=== PATIENT | male | born 1980 | race Caucasian/White ===

== ENCOUNTER 2016-05-23 03:02 | Emergency (ER) | payer OTHER ==
[~2016-05-23 03:02] MED LIST: /FENT50PA TD; /FENT75PA; /FENT75PA TD; /ONDA4TA OR; /PANT40TA PO; ATEN25TA PO; ATEN50TA2 PO; BUPR10TASR PO; CARA1TAB2 PO; CATA0.2T PO; CIPR500T89 PO; COLA50CA3 PO; DOLO10TA PO; FLAG500T PO; FOLI1TAB2 PO; FOLI1TAB86 PO; IBUP200C PO; LACT10SO29 PO; LEVA500T PO; LYRI100C10 PO; MAGN400T PO; MAGNSO PO; MORP1CAP PO; MORP30TA2 PO; MORPHINE ER PO; MORPHINE IR PO; MS C200T PO; MS C30TA PO; NADO20TA2 PO; NEUR600T PO; NICO21DI TD; NICO21DI4; NICO21DI4 TD; NICO21PAT EXT; NICO21PAT TD; NICODIS TD; NICOTINE PATCH EXT; NORV5TAB OR; No Historical Meds; OXAZ10CA PO; OXYC15TA76 PO; OXYC1TAB23 PO; OXYCO5TA PO; PANT40TA2 PO; PERCOCET PO; PRIL20CA PO; PROP10TAB OR; REGL10TA6 PO; SENO8.6T9 PO; TRAM50TA2 OR; TRAM50TA2 PO; TRAZ100T2 PO; TRAZ100T4 PO; Thiamine Hcl PO; VITA100L PO; VITA100T92 PO; VITMTA PO; WELL150T PO
[2016-05-23] MEDS ORDERED: GI COCKTAIL 50ML BTL(HYOSCYAMINE/MAALOX/LIDOCAINE VISCOUS)(1:3:1) As Ordered ONE (06:37)
--- NOTE | 2016-05-23 07:31 | EDDOCDS ---
Physician Documentation [facility] Name: Phong Stafford Age: 36 yrs Sex: Male : 1980 Arrival Date: 05/23/2016 Time: 03:02 Bed 9 Private MD: Disposition: 05/23/16 07:02 Discharged to Home/Self Care. Impression: Oral mucositis (ulcerative). - Condition is Stable. - Discharge Instructions: Oral Ulcers. - Prescriptions for Maalox Maximum Strength - take 10 milliliter by ORAL route 2 times per day for 14 days; 1 bottle. diphenhydramine HCl 12.5 mg/5 mL Oral Liquid - take 5 milliliter by ORAL route every 4-6 hours As needed; 120 milliliter. - Medication Reconciliation, Local Pharmacy Hours form. - [facility] ; When: Call to arrange an appointment; Reason: Recheck today's complaints, Continuance of care, To establish care. Follow up: Justen Coombs; When: Call to arrange an appointment; Reason: Further diagnostic work-up, Recheck today's complaints, To establish care. - Problem is an ongoing problem. - Symptoms are unchanged. Historical: - Allergies: No known drug Allergies; - Home Meds: 1. none - PMHx: Anxiety; Cirrhosis; Depression; Gall Bladder Disease; Hepatitis; Hypertension; Pancreatitis; - PSHx: Knee Arthroplasty, Left; Cholecystectomy; abdominal surgery; - Social history: Smoking status: Patient uses tobacco products, heavy tobacco smoker. No barriers to communication noted, The patient speaks fluent Telugu. - Family history: No immediate family members are acutely ill. - : The pt / caregiver states he / she is not on anticoagulants. Home medication list is obtained from the patient. - Exposure Risk Screening:: None identified. Vital Signs: 05/23 03:16 BP 135 / 84; Pulse 82; Resp 18; Temp 97.1; Pulse Ox 94% on R/A; Weight 90.72 kg / 200 nn1 lbs; Height 5 ft. 11 in. (180.34 cm); Pain 10/10; 06:58 BP 142 / 82; Pulse 80; Resp 18; Temp 97.5; Pulse Ox 99% on R/A; Pain 6/10; kas2 07:29 BP 139 / 77; Pulse 79; Resp 18; Temp 97.8; Pulse Ox 96% ; Pain 9/10; hs1 03:16 Body Mass Index 27.89 (90.72 kg, 180.34 cm) nn1 MDM: 06:02 Financial registration complete. hs2 06:13 Alum-Mag Hydroxide-Simeth Suspension 225 mg-200 mg-25 mg/5 mL 30 ml PO once ordered. bs6 06:30 [facility] Agreement was scanned into [employer] and attached to record. hs2 06:38 GI Cocktail - (Alum-Mag Hydroxide-Simeth 30 ml, Lidocaine 10 ml, Hyoscyamine 10 ml) PO bs6 once; Pre-mixed 50mL unit dose ordered. Administered Medications: 06:38 Not Given (other intervention used): Alum-Mag Hydroxide-Simeth Suspension 225 mg-200 bs6 mg-25 mg/5 mL 30 ml PO once 06:39 Drug: GI Cocktail - (Alum-Mag Hydroxide-Simeth Suspension 225 mg-200 mg-25 mg/5 mL 30 kas2 ml, Lidocaine Liquid 2 % 10 ml, Hyoscyamine Liquid 10 ml) Route: PO; Signatures: Shannan Thakur RN RN hs1 Samia Parikh DO DO bs6 Triny MejiasRN RN nn1 Mattie Mejia, Jovani Reg hs2 Davida Camarena RN kas2 The chart was reviewed and I authenticate all verbal orders and agree with the evaluation and treatment provided.Attachments: 06:30 [facility] Payment Agreement hs2 MTDD
--- NOTE | 2016-05-23 07:31 | EDDOCDS ---
Nurse's Notes [facility] Name: Phong Stafford Age: 36 yrs Sex: Male : 1980 Arrival Date: 05/23/2016 Time: 03:02 Bed 9 Private MD: Diagnosis: Oral mucositis (ulcerative) Presentation: 05/23 03:13 Presenting complaint: Patient states: "I think I have tongue cancer". Reports extremely nn1 painful lesions on tongue. Reports lesions began 2 months ago, has not seen PCP for issue. Reports difficulty swallowing and eating. Adult Sepsis Screening: The patient does not have new or worsening altered mentation. Patient's respiratory rate is less than 22. Systolic blood pressure is greater than 100. Patient has a qSOFA score of 0- Negative Sepsis Screen. Suicide/Homicide risk assessment- the patient denies having any suicidal and/or homicidal ideations and does not present with any other emotional, behavioral or mental health complaints. Status: Patient is not a wind field service manager or dependent. Transition of care: patient was not received from another setting of care. 03:13 Acuity: ALEXSANDER Level 4 nn1 03:13 Method Of Arrival: Walkin/Carried/Asstd nn1 Triage Assessment: 03:17 General: Appears uncomfortable. General: Lesions noted throughout tongue, tongue is nn1 reddened and swollen. Reports jaw pain. . Pain: Location: tongue Pain currently is 10 out of 10 on a pain scale. HIV screening NA for this visit Offered previously. The patient is triaged at the bedside. See Assessment in Nurses Notes section of ED record. EENT: Oral mucosa is moist. Poor dentition noted. Respiratory: Airway is patent Respiratory effort is even, unlabored, Respiratory pattern is regular. Historical: - Allergies: No known drug Allergies; - Home Meds: 1. none - PMHx: Anxiety; Cirrhosis; Depression; Gall Bladder Disease; Hepatitis; Hypertension; Pancreatitis; - PSHx: Knee Arthroplasty, Left; Cholecystectomy; abdominal surgery; - Social history: Smoking status: Patient uses tobacco products, heavy tobacco smoker. No barriers to communication noted, The patient speaks fluent Turkmen. - Family history: No immediate family members are acutely ill. - : The pt / caregiver states he / she is not on anticoagulants. Home medication list is obtained from the patient. - Exposure Risk Screening:: None identified. Screenin:24 Screening information is obtained from the patient. Fall risk: No risks identified. kas2 Assistance ADL's: requires no assistance with activities of daily living. Abuse/DV Screen: The patient / caregiver reports he/she is: not in a situation that causes fear, pain or injury. Nutritional screening: No deficits noted. Advance Directives: Currently, there is no health care proxy. There is no active DNR order. There is There is no Power of Veterinary Receptionist. home support is adequate. Assessment: 05:00 General: Patient asleep in waiting room. . Respiratory: Airway is patent Respiratory nn1 effort is even, unlabored, Respiratory pattern is regular. Derm: Skin is normal. 05:23 General: Appears in no apparent distress, uncomfortable, well nourished, well groomed, kas2 Behavior is appropriate for age, cooperative. Pain: Location: mouth Pain currently is 6 out of 10 on a pain scale. Neurological: Level of Consciousness is awake, alert, Oriented to person, place, time. Cardiovascular: Capillary refill < 3 seconds Rhythm is regular. Respiratory: Airway is patent Respiratory effort is even, unlabored, Respiratory pattern is regular, symmetrical, Breath sounds are clear bilaterally. Derm: Skin is intact, Skin is dry, Skin is pink, warm & dry. Skin temperature is warm. 06:34 General: Patient laying in bed with friend at bedside. Patient complains of pain in kas2 mouth. No apparent distress noted. Call pfeiffer within reach. Will continue to monitor.. 07:27 General: Upset about care- discussion held with patient regarding plan of care and hs1 further work up by ENT. Pt calm and agreeable to discharge and further work up and plan of care after lengthy discussion. Pt continues to show pictures of oral cancer and pt is reminded that ENT will do full work up and discuss all treatment plans. . Vital Signs: 03:16 BP 135 / 84; Pulse 82; Resp 18; Temp 97.1; Pulse Ox 94% on R/A; Weight 90.72 kg; Height nn1 5 ft. 11 in. (180.34 cm); Pain 10/10; 06:58 BP 142 / 82; Pulse 80; Resp 18; Temp 97.5; Pulse Ox 99% on R/A; Pain 6/10; kas2 07:29 BP 139 / 77; Pulse 79; Resp 18; Temp 97.8; Pulse Ox 96% ; Pain 9/10; hs1 03:16 Body Mass Index 27.89 (90.72 kg, 180.34 cm) nn1 ED Course: 03:03 Patient visited by Kristie Centeno. gjb 03:03 Patient moved to Waiting gjb 03:15 Triage Initiated nn1 05:16 Davida Camarena RN is Primary Nurse. nn1 05:16 Patient moved to 9 nn1 05:25 Patient visited by Davida Camarena RN. kas2 05:33 Samia Parikh DO is PHCP. bs6 05:33 Rogers Shafer DO is Attending Physician. bs6 05:33 Patient visited by Samia Parikh DO. bs6 05:33 Patient visited by Samia Parikh DO. bs6 06:30 [facility] Payment Agreement was scanned into [employer] and attached to record. hs2 06:35 Patient visited by Davida Camarena RN. kas2 06:58 Patient visited by Davida Camarena RN. kas2 06:59 [facility] is Referral Physician. bs6 06:59 Justen Coombs is Referral Physician. bs6 07:02 Patient visited by Davida Camarena RN. kas2 07:28 No IV's were initiated during this patient's visit. No procedures done that require hs1 assistance. 07:29 The patient / caregiver is instructed regarding the plan of care and ED course. hs1 Administered Medications: 06:38 Not Given (other intervention used): Alum-Mag Hydroxide-Simeth Suspension 225 mg-200 bs6 mg-25 mg/5 mL 30 ml PO once 06:39 Drug: GI Cocktail - (Alum-Mag Hydroxide-Simeth Suspension 225 mg-200 mg-25 mg/5 mL 30 kas2 ml, Lidocaine Liquid 2 % 10 ml, Hyoscyamine Liquid 10 ml) Route: PO; Order Results: There are currently no results for this order. Outcome: 07:02 Discharge ordered by Provider. bs6 07:28 Discharge Assessment: Patient awake, alert and oriented x 3. No cognitive and/or hs1 functional deficits noted. Patient verbalized understanding of disposition instructions. patient administered narcotics - no. The following High Risk Discharge criteria are identified: None. Discharged to home ambulatory. Condition: stable. Discharge instructions given to patient, Instructed on discharge instructions, follow up and referral plans. medication usage, Demonstrated understanding of instructions, medications, Pt was receptive of discharge instructions/ teaching. Prescriptions given X 2. No special radiology studies were completed. Property sent home with patient. 07:30 Patient left the ED. hs1 Signatures: Shannan Thakur, RN RN hs1 Samia Parikh DO DO bs6 Triny Mejias,RN RN nn1 Kristie Centenob Mattie Mejia, Reg Reg hs2 Davida Camarena,RN RN [facility]2 MTDD
--- NOTE | 2016-05-25 08:31 | EDDOCDS ---
Physician Documentation [facility] Name: Phong Stafford Age: 36 yrs Sex: Male : 1980 Arrival Date: 05/23/2016 Time: 03:02 Bed 9 Private MD: Disposition: 05/23/16 07:02 Discharged to Home/Self Care. Impression: Oral mucositis (ulcerative). - Condition is Stable. - Discharge Instructions: Oral Ulcers. - Prescriptions for Maalox Maximum Strength - take 10 milliliter by ORAL route 2 times per day for 14 days; 1 bottle. diphenhydramine HCl 12.5 mg/5 mL Oral Liquid - take 5 milliliter by ORAL route every 4-6 hours As needed; 120 milliliter. - Medication Reconciliation, Local Pharmacy Hours form. - [facility] ; When: Call to arrange an appointment; Reason: Recheck today's complaints, Continuance of care, To establish care. Follow up: Justen Coombs; When: Call to arrange an appointment; Reason: Further diagnostic work-up, Recheck today's complaints, To establish care. - Problem is an ongoing problem. - Symptoms are unchanged. Historical: - Allergies: No known drug Allergies; - Home Meds: 1. none - PMHx: Anxiety; Cirrhosis; Depression; Gall Bladder Disease; Hepatitis; Hypertension; Pancreatitis; - PSHx: Knee Arthroplasty, Left; Cholecystectomy; abdominal surgery; - Social history: Smoking status: Patient uses tobacco products, heavy tobacco smoker. No barriers to communication noted, The patient speaks fluent Upper Sorbian. - Family history: No immediate family members are acutely ill. - : The pt / caregiver states he / she is not on anticoagulants. Home medication list is obtained from the patient. - Exposure Risk Screening:: None identified. Vital Signs: 05/23 03:16 BP 135 / 84; Pulse 82; Resp 18; Temp 97.1; Pulse Ox 94% on R/A; Weight 90.72 kg / 200 nn1 lbs; Height 5 ft. 11 in. (180.34 cm); Pain 10/10; 06:58 BP 142 / 82; Pulse 80; Resp 18; Temp 97.5; Pulse Ox 99% on R/A; Pain 6/10; kas2 07:29 BP 139 / 77; Pulse 79; Resp 18; Temp 97.8; Pulse Ox 96% ; Pain 9/10; hs1 03:16 Body Mass Index 27.89 (90.72 kg, 180.34 cm) nn1 MDM: 06:02 Financial registration complete. hs2 06:13 Alum-Mag Hydroxide-Simeth Suspension 225 mg-200 mg-25 mg/5 mL 30 ml PO once ordered. bs6 06:30 [facility] Payment Agreement was scanned into [employer] and attached to record. hs2 06:38 GI Cocktail - (Alum-Mag Hydroxide-Simeth 30 ml, Lidocaine 10 ml, Hyoscyamine 10 ml) PO bs6 once; Pre-mixed 50mL unit dose ordered. 09:24 T-Sheet-- Draft Copy was scanned into [employer] and attached to record. seh Administered Medications: 06:38 Not Given (other intervention used): Alum-Mag Hydroxide-Simeth Suspension 225 mg-200 bs6 mg-25 mg/5 mL 30 ml PO once 06:39 Drug: GI Cocktail - (Alum-Mag Hydroxide-Simeth Suspension 225 mg-200 mg-25 mg/5 mL 30 kas2 ml, Lidocaine Liquid 2 % 10 ml, Hyoscyamine Liquid 10 ml) Route: PO; Signatures: Shannan Thakur RN RN hs1 Samia Parikh, DO bs6 Triny MejiasRN RN nn1 Mtatie Mejia, Reg Reg hs2 Kay Goldberg Kim RN kas2 The chart was reviewed and I authenticate all verbal orders and agree with the evaluation and treatment provided.Attachments: 06:30 [facility] Payment Agreement hs2 09:24 T-Sheet-- Draft Copy se Chart Complete MTDD
--- NOTE | 2016-05-25 08:31 | EDDOCDS ---
Physician Documentation [facility] Name: Phong Stafford Age: 36 yrs Sex: Male : 1980 Arrival Date: 05/23/2016 Time: 03:02 Bed 9 Private MD: Disposition: 05/23/16 07:02 Discharged to Home/Self Care. Impression: Oral mucositis (ulcerative). - Condition is Stable. - Discharge Instructions: Oral Ulcers. - Prescriptions for Maalox Maximum Strength - take 10 milliliter by ORAL route 2 times per day for 14 days; 1 bottle. diphenhydramine HCl 12.5 mg/5 mL Oral Liquid - take 5 milliliter by ORAL route every 4-6 hours As needed; 120 milliliter. - Medication Reconciliation, Local Pharmacy Hours form. - [facility]: [facility] ; When: Call to arrange an appointment; Reason: Recheck today's complaints, Continuance of care, To establish care. Follow up: Justen Coombs; When: Call to arrange an appointment; Reason: Further diagnostic work-up, Recheck today's complaints, To establish care. - Problem is an ongoing problem. - Symptoms are unchanged. Historical: - Allergies: No known drug Allergies; - Home Meds: 1. none - PMHx: Anxiety; Cirrhosis; Depression; Gall Bladder Disease; Hepatitis; Hypertension; Pancreatitis; - PSHx: Knee Arthroplasty, Left; Cholecystectomy; abdominal surgery; - Social history: Smoking status: Patient uses tobacco products, heavy tobacco smoker. No barriers to communication noted, The patient speaks fluent Slovak. - Family history: No immediate family members are acutely ill. - : The pt / caregiver states he / she is not on anticoagulants. Home medication list is obtained from the patient. - Exposure Risk Screening:: None identified. Vital Signs: 05/23 03:16 BP 135 / 84; Pulse 82; Resp 18; Temp 97.1; Pulse Ox 94% on R/A; Weight 90.72 kg / 200 nn1 lbs; Height 5 ft. 11 in. (180.34 cm); Pain 10/10; 06:58 BP 142 / 82; Pulse 80; Resp 18; Temp 97.5; Pulse Ox 99% on R/A; Pain 6/10; kas2 07:29 BP 139 / 77; Pulse 79; Resp 18; Temp 97.8; Pulse Ox 96% ; Pain 9/10; hs1 03:16 Body Mass Index 27.89 (90.72 kg, 180.34 cm) nn1 MDM: 06:02 Financial registration complete. hs2 06:13 Alum-Mag Hydroxide-Simeth Suspension 225 mg-200 mg-25 mg/5 mL 30 ml PO once ordered. bs6 06:30 [facility] Payment Agreement was scanned into [employer] and attached to record. hs2 06:38 GI Cocktail - (Alum-Mag Hydroxide-Simeth 30 ml, Lidocaine 10 ml, Hyoscyamine 10 ml) PO bs6 once; Pre-mixed 50mL unit dose ordered. 09:24 T-Sheet-- Draft Copy was scanned into [employer] and attached to record. seh Administered Medications: 06:38 Not Given (other intervention used): Alum-Mag Hydroxide-Simeth Suspension 225 mg-200 bs6 mg-25 mg/5 mL 30 ml PO once 06:39 Drug: GI Cocktail - (Alum-Mag Hydroxide-Simeth Suspension 225 mg-200 mg-25 mg/5 mL 30 kas2 ml, Lidocaine Liquid 2 % 10 ml, Hyoscyamine Liquid 10 ml) Route: PO; Signatures: Shannan Thakur RN RN hs1 Samia Parikh, DO bs6 Triny MejiasRN RN nn1 Mattie Mejia, Reg Reg hs2 Kay Goldberg Kim RN kas2 The chart was reviewed and I authenticate all verbal orders and agree with the evaluation and treatment provided.Attachments: 06:30 [facility] Payment Agreement hs2 09:24 T-Sheet-- Draft Copy se Chart Complete MTDD
--- NOTE | 2016-05-25 08:31 | EDDOCDS ---
Nurse's Notes [facility] Name: Phong Stafford Age: 36 yrs Sex: Male : 1980 Arrival Date: 05/23/2016 Time: 03:02 Bed 9 Private MD: Diagnosis: Oral mucositis (ulcerative) Presentation: 05/23 03:13 Presenting complaint: Patient states: "I think I have tongue cancer". Reports extremely nn1 painful lesions on tongue. Reports lesions began 2 months ago, has not seen PCP for issue. Reports difficulty swallowing and eating. Adult Sepsis Screening: The patient does not have new or worsening altered mentation. Patient's respiratory rate is less than 22. Systolic blood pressure is greater than 100. Patient has a qSOFA score of 0- Negative Sepsis Screen. Suicide/Homicide risk assessment- the patient denies having any suicidal and/or homicidal ideations and does not present with any other emotional, behavioral or mental health complaints. Status: Patient is not a public health service officer or dependent. Transition of care: patient was not received from another setting of care. 03:13 Acuity: ALEXSANDER Level 4 nn1 03:13 Method Of Arrival: Walkin/Carried/Asstd nn1 Triage Assessment: 03:17 General: Appears uncomfortable. General: Lesions noted throughout tongue, tongue is nn1 reddened and swollen. Reports jaw pain. . Pain: Location: tongue Pain currently is 10 out of 10 on a pain scale. HIV screening NA for this visit Offered previously. The patient is triaged at the bedside. See Assessment in Nurses Notes section of ED record. EENT: Oral mucosa is moist. Poor dentition noted. Respiratory: Airway is patent Respiratory effort is even, unlabored, Respiratory pattern is regular. Historical: - Allergies: No known drug Allergies; - Home Meds: 1. none - PMHx: Anxiety; Cirrhosis; Depression; Gall Bladder Disease; Hepatitis; Hypertension; Pancreatitis; - PSHx: Knee Arthroplasty, Left; Cholecystectomy; abdominal surgery; - Social history: Smoking status: Patient uses tobacco products, heavy tobacco smoker. No barriers to communication noted, The patient speaks fluent Tajik. - Family history: No immediate family members are acutely ill. - : The pt / caregiver states he / she is not on anticoagulants. Home medication list is obtained from the patient. - Exposure Risk Screening:: None identified. Screenin:24 Screening information is obtained from the patient. Fall risk: No risks identified. kas2 Assistance ADL's: requires no assistance with activities of daily living. Abuse/DV Screen: The patient / caregiver reports he/she is: not in a situation that causes fear, pain or injury. Nutritional screening: No deficits noted. Advance Directives: Currently, there is no health care proxy. There is no active DNR order. There is There is no Power of White Goods Appliance Tech. home support is adequate. Assessment: 05:00 General: Patient asleep in waiting room. . Respiratory: Airway is patent Respiratory nn1 effort is even, unlabored, Respiratory pattern is regular. Derm: Skin is normal. 05:23 General: Appears in no apparent distress, uncomfortable, well nourished, well groomed, kas2 Behavior is appropriate for age, cooperative. Pain: Location: mouth Pain currently is 6 out of 10 on a pain scale. Neurological: Level of Consciousness is awake, alert, Oriented to person, place, time. Cardiovascular: Capillary refill < 3 seconds Rhythm is regular. Respiratory: Airway is patent Respiratory effort is even, unlabored, Respiratory pattern is regular, symmetrical, Breath sounds are clear bilaterally. Derm: Skin is intact, Skin is dry, Skin is pink, warm & dry. Skin temperature is warm. 06:34 General: Patient laying in bed with friend at bedside. Patient complains of pain in kas2 mouth. No apparent distress noted. Call pfeiffer within reach. Will continue to monitor.. 07:27 General: Upset about care- discussion held with patient regarding plan of care and hs1 further work up by ENT. Pt calm and agreeable to discharge and further work up and plan of care after lengthy discussion. Pt continues to show pictures of oral cancer and pt is reminded that ENT will do full work up and discuss all treatment plans. . Vital Signs: 03:16 BP 135 / 84; Pulse 82; Resp 18; Temp 97.1; Pulse Ox 94% on R/A; Weight 90.72 kg; Height nn1 5 ft. 11 in. (180.34 cm); Pain 10/10; 06:58 BP 142 / 82; Pulse 80; Resp 18; Temp 97.5; Pulse Ox 99% on R/A; Pain 6/10; kas2 07:29 BP 139 / 77; Pulse 79; Resp 18; Temp 97.8; Pulse Ox 96% ; Pain 9/10; hs1 03:16 Body Mass Index 27.89 (90.72 kg, 180.34 cm) nn1 ED Course: 03:03 Patient visited by Kristie Centeno. gjb 03:03 Patient moved to Waiting gjb 03:15 Triage Initiated nn1 05:16 Davida Camarena RN is Primary Nurse. nn1 05:16 Patient moved to 9 nn1 05:25 Patient visited by Davida Camarena RN. kas2 05:33 Samia Parikh DO is PHCP. bs6 05:33 Rogers Shafer DO is Attending Physician. bs6 05:33 Patient visited by Samia Parikh DO. bs6 05:33 Patient visited by Samia Parikh DO. bs6 06:30 [facility] Payment Agreement was scanned into [employer] and attached to record. hs2 06:35 Patient visited by Davida Camarena RN. kas2 06:58 Patient visited by Davida Camarena RN. kas2 06:59 [facility] is Referral Physician. bs6 06:59 Justen Coombs is Referral Physician. bs6 07:02 Patient visited by Davida Camarena RN. kas2 07:28 No IV's were initiated during this patient's visit. No procedures done that require hs1 assistance. 07:29 The patient / caregiver is instructed regarding the plan of care and ED course. hs1 09:24 T-Sheet-- Draft Copy was scanned into [employer] and attached to record. seh Administered Medications: 06:38 Not Given (other intervention used): Alum-Mag Hydroxide-Simeth Suspension 225 mg-200 bs6 mg-25 mg/5 mL 30 ml PO once 06:39 Drug: GI Cocktail - (Alum-Mag Hydroxide-Simeth Suspension 225 mg-200 mg-25 mg/5 mL 30 kas2 ml, Lidocaine Liquid 2 % 10 ml, Hyoscyamine Liquid 10 ml) Route: PO; Order Results: There are currently no results for this order. Outcome: 07:02 Discharge ordered by Provider. bs6 07:28 Discharge Assessment: Patient awake, alert and oriented x 3. No cognitive and/or hs1 functional deficits noted. Patient verbalized understanding of disposition instructions. patient administered narcotics - no. The following High Risk Discharge criteria are identified: None. Discharged to home ambulatory. Condition: stable. Discharge instructions given to patient, Instructed on discharge instructions, follow up and referral plans. medication usage, Demonstrated understanding of instructions, medications, Pt was receptive of discharge instructions/ teaching. Prescriptions given X 2. No special radiology studies were completed. Property sent home with patient. 07:30 Patient left the ED. hs1 Signatures: Shannan Thakur RN RN hs1 Samia Parikh DO DO bs6 Triny MejiasRN RN nn1 Kristie Centenob Mattie Mejia, Reg Reg hs2 Davida CamarenaRN RN [id number] Kay Goldberg Chart Complete MTDD
== END 2016-05-23 07:30 | disposition home or self-care (01) ==
LOC: M ED 03:02
DX: K12.30 Oral mucositis (ulcerative), unspecified (principal); F41.9 Anxiety disorder, unspecified; F32.9 Major depressive disorder, single episode, unspecified; I10 Essential (primary) hypertension; K74.60 Unspecified cirrhosis of liver; K75.9 Inflammatory liver disease, unspecified; Z96.652 Presence of left artificial knee joint

== ENCOUNTER 2016-06-05 05:37 | Emergency (ER) | payer OTHER ==
[2016-06-05 06:21] LABS: BASO % 0.6 % (0.0-1.0); EOS # 0.1 K/mm3 (0.0-0.50); EOS % 3.2 % (0.0-3.0); LARGE UNSTAINED CELL # 0.1 K/mm3 (0.0-0.4); LARGE UNSTAINED CELL % 3.2 % (0.0-4.0); LYMPH # 0.7 K/mm3 (1.5-4.5); LYMPH % 17.3 % (24.0-44.0); MEAN CORPUSCULAR HEMOGLOBIN 31.8 pg (27.0-33.0); MEAN CORPUSCULAR VOLUME 88.2 fl (80.0-96.0); MONO # 0.2 K/mm3 (0.0-0.8); MONO % 4.4 % (0.0-5.0); NEUTROPHILS % 71.4 % (36.0-66.0); PLATELET COUNT, AUTOMATED 148 k/mm3 (150-450); WHITE BLOOD COUNT 4.2 K/mm3 (4.0-10.0)
[2016-06-05 06:41] LABS: ALBUMIN 3.5 GM/DL (3.2-5.2); ALBUMIN/GLOBULIN RATIO 0.78 (1.00-1.93); ALKALINE PHOSPHATASE 98 U/L (45-117); ALT/SGPT 599 U/L (12-78); AMYLASE 42 U/L (25-115); AST/SGOT 763 U/L (15-37); BILIRUBIN,DIRECT 0.7 MG/DL (0.0-0.2); BILIRUBIN,TOTAL 2.8 MG/DL (0.2-1.0); BLOOD UREA NITROGEN 5 MG/DL (7-18); CALCIUM LEVEL 8.5 MG/DL (8.5-10.1); CARBON DIOXIDE LEVEL 30 MEQ/L (21-32); CHLORIDE LEVEL 104 MEQ/L (98-107); CREATININE FOR GFR 0.54 MG/DL (0.70-1.30); GLOMERULAR FILTRATION RATE > 60.0 (>60); GLUCOSE, FASTING 110 MG/DL (70-105)
[2016-06-05 06:52] LABS: ANION GAP 9 MEQ/L (8-16); SODIUM LEVEL 143 MEQ/L (136-145)
[2016-06-05] MEDS ORDERED: MORPHINE 2 MG/ML 1ML SYRINGE As Ordered ONE (07:00)
[2016-06-05 07:03] LABS: INR 1.46
[2016-06-05 07:18] LABS: POTASSIUM SERUM 2.9 MEQ/L (3.5-5.1)
[2016-06-05] MEDS ORDERED: POTASSIUM CHLORIDE 10 MEQ SR TABLET As Ordered ONE (09:00)
[2016-06-05] MEDS ORDERED: MORPHINE 4 MG/ML 1ML SYRINGE As Ordered ONE (09:01)
--- NOTE | 2016-06-05 09:17 | REP ---
Clinical: Abdominal pain with elevated liver function tests and history of cirrhosis. Technique: Real time lang scale ultrasound examination using curved array transducer. Color Doppler evaluation of the hepatic vasculature performed. Findings: The patient is status post cholecystectomy. Liver demonstrates a coarsened echotexture with subtle nodular contour compatible with cirrhosis and that the pancreas is unremarkable. There is no evidence for biliary ductal dilatation and the common bile duct measures 3 mm diameter. The right kidney is normal in reniform shape without hydronephrosis and measures 13.1 x 5.8 x 6.5 cm. No ascites in the visualized right upper quadrant. Color Doppler evaluation demonstrates a recanalized umbilical vein hepatofugal flow at approximately 45 cm/sec main portal vein measures 17 mm diameter and demonstrates hepatopetal flow at 21 cm/sec. Impression: Evidence for cirrhosis with portal hypertension. Signed by Heraclio Suárez MD 06/05/2016 09:09 A
--- NOTE | 2016-06-05 09:52 | EDDOCDS ---
Physician Documentation [facility] Name: Phong Stafford Age: 36 yrs Sex: Male : 1980 Arrival Date: 06/05/2016 Time: 05:37 Bed 15 Private MD: No Pcp Disposition: 06/05/16 09:38 Patient has left against medical advice. Impression: Alcoholic hepatitis. - Patients states they are going to Home/Self Care. - Condition is Fair. - Discharge Instructions: Alcoholic Hepatitis. Medication Reconciliation, Local Pharmacy Hours form. [facility]: [facility]; When: Call to arrange an appointment. - Problem is chronic. - Symptoms have worsened. Historical: - Allergies: No known drug Allergies; - PMHx: Anxiety; Cirrhosis; Depression; Gall Bladder Disease; Hepatitis; Hypertension; Pancreatitis; - PSHx: Knee Arthroplasty, Left; Cholecystectomy; abdominal surgery; - Social history: Smoking status: Patient uses tobacco products, heavy tobacco smoker. No barriers to communication noted, The patient speaks fluent Welsh, Speaks appropriately for age. - Family history: Not pertinent. - : The pt / caregiver states he / she is not on anticoagulants. Home medication list is obtained from the patient. - Exposure Risk Screening:: None identified. Vital Signs: 06/05 05:51 BP 144 / 89; Pulse 107; Resp 20; Temp 97.4(O); Pulse Ox 100% on R/A; Weight 88.45 kg / jmv 195 lbs (R); Height 5 ft. 11 in. (180.34 cm) (R); Pain 8/10; 05:51 Body Mass Index 27.20 (88.45 kg, 180.34 cm) jmv MDM: 06:04 NS 0.9% 500 ml IV at bolus once ordered. cs11 06:04 CBC with Diff Ordered. EDMS 06:04 MED Profile Ordered. EDMS 06:04 Liver Profile Ordered. EDMS 06:04 Amylase Ordered. EDMS 06:04 Lipase Ordered. EDMS 06:04 Alcohol Ordered. EDMS 06:04 Urinalysis Ordered. EDMS 06:04 Pt & Aptt Ordered. EDMS 06:04 Lactic Acid (Cardozo tube on ice) Ordered. EDMS 06:04 Urine Culture Ordered. EDMS 06:21 Financial registration complete. pm4 06:33 [facility] Payment Agreement was scanned into [employer] and attached to record. pm4 06:58 morphine 2 mg IVP once ordered. cs11 07:32 CBC with Diff Reviewed. sd1 07:32 MED Profile Reviewed. sd1 07:32 Liver Profile Reviewed. sd1 07:32 Alcohol Reviewed. sd1 07:32 Pt & Aptt Reviewed. sd1 07:32 Amylase Reviewed. sd1 07:32 Lipase Reviewed. sd1 07:32 Lactic Acid (Cardozo tube on ice) Reviewed. sd1 07:32 Potassium Chloride Extended Release Tablet 40 mEq PO once ordered. sd1 07:39 Hepatitis Profile Ordered. EDMS 07:39 morphine 4 mg IVP every 15 minutes; Document pain score/vitals after each dose (Hold if sd1 SBP < 90mmHg) x2 ordered. 07:50 LIVER US Ordered. EDMS Administered Medications: 06:14 Drug: NS 0.9% 500 ml [sodium chloride 0.9 % intravenous solution] Route: IV; Rate: tm5 bolus; Site: left antecubital; 07:08 Drug: morphine 2 mg [morphine 2 mg/mL intravenous cartridge (1 mL)] Route: IVP; Site: hs1 left upper arm; 09:15 Drug: Potassium Chloride 40 mEq [potassium chloride ER 10 mEq tablet,extended release hs1 (4 tabs)] Route: PO; 09:15 Drug: morphine 4 mg [morphine 4 mg/mL intravenous cartridge (1 mL)] Route: IVP; Site: hs1 left upper arm; Signatures: Dispatcher [employer] EDPR Kay Villa MD MD sd1 Akhil Murry RN RN dy Schiff, Craig, DO cs11 Triny Mejias RN RN nn1 Loretta Eller RN RN tm5 Ge Vines, Reg Reg pm4 Shannan Thakur RN hs1 The chart was reviewed and I authenticate all verbal orders and agree with the evaluation and treatment provided.Corrections: (The following items were deleted from the chart) 07:50 07:34 GALLBLADDER US+US ordered. EDMS EDMS Attachments: 06:33 [facility] Payment Agreement pm4 MTDD
--- NOTE | 2016-06-05 09:53 | EDDOCDS ---
Nurse's Notes [facility] Name: Phong Stafford Age: 36 yrs Sex: Male : 1980 Arrival Date: 06/05/2016 Time: 05:37 Bed 15 Private MD: No Pcp Diagnosis: Alcoholic hepatitis Presentation: 06/05 05:41 Presenting complaint: EMS states: patient reporting right side upper abdominal pain. nn1 Patient has cirrhosis of the liver, admits to consuming alcohol tonight. 05:41 Method Of Arrival: Ambulance nn1 05:48 Risk factors: the patient reports not having a history of previous torsion. Adult nn1 Sepsis Screening: The patient does not have new or worsening altered mentation. Patient's respiratory rate is less than 22. Systolic blood pressure is greater than 100. Patient has a qSOFA score of 0- Negative Sepsis Screen. Suicide/Homicide risk assessment- the patient denies having any suicidal and/or homicidal ideations and does not present with any other emotional, behavioral or mental health complaints. Status: Patient is not a member services coordinator or dependent. Transition of care: patient was not received from another setting of care. 05:48 Acuity: ALEXSANDER Level 3 nn1 Triage Assessment: 05:49 General: Appears in no apparent distress, uncomfortable, Behavior is appropriate for nn1 age, cooperative. Pain: Location: right upper quadrant Pain currently is 9 out of 10 on a pain scale. HIV screening NA for this visit Offered previously. The patient is triaged at the bedside. See Assessment in Nurses Notes section of ED record. Neurological: Level of Consciousness is awake, alert. GI: Abdomen is flat, non- distended Bowel sounds present X 4 quads. Abd is tender to palpation in right upper quadrant and right lower quadrant. Derm: Skin is pink, warm & dry. Historical: - Allergies: No known drug Allergies; - PMHx: Anxiety; Cirrhosis; Depression; Gall Bladder Disease; Hepatitis; Hypertension; Pancreatitis; - PSHx: Knee Arthroplasty, Left; Cholecystectomy; abdominal surgery; - Social history: Smoking status: Patient uses tobacco products, heavy tobacco smoker. No barriers to communication noted, The patient speaks fluent Finnish, Speaks appropriately for age. - Family history: Not pertinent. - : The pt / caregiver states he / she is not on anticoagulants. Home medication list is obtained from the patient. - Exposure Risk Screening:: None identified. Screenin:03 Screening information is obtained from the patient. Fall risk: No risks identified. tm5 Assistance ADL's: requires no assistance with activities of daily living. Abuse/DV Screen: The patient / caregiver reports he/she is: not in a situation that causes fear, pain or injury. Nutritional screening: No deficits noted. Advance Directives: There is no active DNR order. home support is adequate. Assessment: 06:03 General: Appears in no apparent distress, Behavior is agitated. Pain: Location: right tm5 upper quadrant Pain currently is 10 out of 10 on a pain scale. Quality of pain is described as sharp, stabbing. Neurological: Level of Consciousness is awake, alert, Oriented to person, place, time. Respiratory: Airway is patent Respiratory effort is even, unlabored, Respiratory pattern is regular, symmetrical, Breath sounds are clear bilaterally. GI: Abdomen is non- distended Bowel sounds present X 4 quads. Reports nausea, vomiting. : No deficits noted. Derm: Skin is pink, warm & dry. normal. 06:18 General: pt ringing call pfeiffer asking for pain meds again, told pt that MD is aware of tm5 his pain complaints & MD has not written any orders at this time, pt then asking to speak to MD which MD is aware of . 07:02 General: patient and SO found laying in bed together this morning. Pt complaining that hs1 "IV went in too fast and why does he have to pee so much?" Patient given 2 mg morphine per order. Patient reports pain in abdomen stabbing. . 09:08 General: Pt returned from ultrasound at this time. Patient states resting in bed hs1 painful 8/10. Patients SO still in bed with patient. Patient administered medication. Patient states drinking water will make him throw up, if he drinks more. Pt told that if he felt nauseated to alert nursing staff and that we would get nausea medication. Patient also demands water be left at bedside. . 09:40 General: Appears in no apparent distress, Behavior is agitated, anxious, pt requesting dy to leave AMA due to "having to be to work right now!". pt alert and oriented with no signs of pain or distress. pt signed AMA paperwork and Dr. Beck signed pt out with discharge instructions. pt SO is driving patient home. Vital Signs: 05:51 BP 144 / 89; Pulse 107; Resp 20; Temp 97.4(O); Pulse Ox 100% on R/A; Weight 88.45 kg jmv (R); Height 5 ft. 11 in. (180.34 cm) (R); Pain 8/10; 05:51 Body Mass Index 27.20 (88.45 kg, 180.34 cm) [facility] Vitals: 09:51 Log In Time: June 05, 2016 at 05:37. dy ED Course: 05:38 Patient visited by Mraiola Hooker PCA. tmm1 05:38 Patient moved to Waiting tmm1 05:40 No Pcp is Private Physician. tmm1 05:40 Patient moved to 15 tmm1 05:48 Triage Initiated nn1 05:51 Pt greeted and oriented to ED. Patient advised of names of staff involved in care, v location of call pfeiffer, wait times and NPO status. Patient has correct armband on for positive identification. Placed in gown. Bed in low position. Call light in reach. Side rails up X2. Pulse ox on. NIBP on. 05:52 Patient visited by Nikolay Valdez PCA. jmv 05:56 Rogers Shafer DO is Attending Physician. cs11 05:56 Patient visited by Rogres Shafer DO. cs11 06:03 Loretta Eller RN is Primary Nurse. tm5 06:03 Patient visited by Loretta Eller RN. tm5 06:03 ED physician to see patient. tm5 06:03 The patient / caregiver is instructed regarding the plan of care and ED course. tm5 06:03 Inserted saline lock: 20 gauge in left antecubital area and blood collected. The tm5 patient tolerated the procedure well. 06:06 Alcohol Sent. tm5 06:06 Lipase Sent. tm5 06:06 Amylase Sent. tm5 06:06 Liver Profile Sent. tm5 06:06 MED Profile Sent. tm5 06:06 CBC with Diff Sent. tm5 06:14 Notified attending ED physician of pt asking several times for pain medications since tm5 his arrival, no new orders at this time. 06:18 Patient visited by Loretta Eller RN. tm5 06:33 [facility] [place] Payment Agreement was scanned into [employer] and attached to record. pm4 06:46 Patient visited by Loretta Eller RN. tm5 07:02 Attending Physician role handed off by Rogers Shafer DO sd1 07:02 Kay Villa MD is Attending Physician. sd1 07:04 Shannan Thakur RN is Primary Nurse. hs1 07:09 Primary Nurse role handed off by Loretta Eller,RUBEN deg 07:28 Patient visited by Shannan Thakur RN. hs1 07:35 Urine Culture Sent. rn1 07:35 Urinalysis Sent. rn1 08:20 Patient visited by Shannan Thakur RN. hs1 08:21 Patient moved to Ultrasound hs1 09:08 Patient visited by Shannan Thakur RN. hs1 09:08 Patient moved to 15 hs1 09:13 Patient visited by Shannan Thakur RN. hs1 09:26 LIVER US Returned. EDMS 09:38 [facility] is Referral Physician. sd1 09:50 Discontinued lock intact, bleeding controlled, pressure dressing applied, No dy redness/swelling at site. No procedures done that require assistance. Administered Medications: 06:14 Drug: NS 0.9% 500 ml [sodium chloride 0.9 % intravenous solution] Route: IV; Rate: tm5 bolus; Site: left antecubital; 07:08 Drug: morphine 2 mg [morphine 2 mg/mL intravenous cartridge (1 mL)] Route: IVP; Site: hs1 left upper arm; 09:15 Drug: Potassium Chloride 40 mEq [potassium chloride ER 10 mEq tablet,extended release hs1 (4 tabs)] Route: PO; 09:15 Drug: morphine 4 mg [morphine 4 mg/mL intravenous cartridge (1 mL)] Route: IVP; Site: hs1 left upper arm; Order Results: Lab Order: CBC with Diff; SPEC'M 06/05/16 06:09 Test: WHITE BLOOD COUNT; Value: 4.2; Range: 4.0-10.0; Units: K/mm3; Status: F Test: RED BLOOD COUNT; Value: 4.61; Range: 4.30-6.10; Units: M/mm3; Status: F Test: HEMOGLOBIN; Value: 14.7; Range: 14.0-18.0; Units: g/dl; Status: F Test: HEMATOCRIT; Value: 40.7; Range: 42.0-52.0; Abnormal: Below low normal; Units: %; Status: F Test: MEAN CORPUSCULAR VOLUME; Value: 88.2; Range: 80.0-96.0; Units: fl; Status: F Test: MEAN CORPUSCULAR HEMOGLOBIN; Value: 31.8; Range: 27.0-33.0; Units: pg; Status: F Test: MEAN CORPUSCULAR HGB CONC; Value: 36.0; Range: 32.0-36.5; Units: g/dl; Status: F Test: RED CELL DISTRIBUTION WIDTH; Value: 14.0; Range: 11.5-14.5; Units: %; Status: F Test: PLATELET COUNT, AUTOMATED; Value: 148; Range: 150-450; Abnormal: Below low normal; Units: k/mm3; Status: F Test: NEUTROPHILS %; Value: 71.4; Range: 36.0-66.0; Abnormal: Above high normal; Units: %; Status: F Test: LYMPH %; Value: 17.3; Range: 24.0-44.0; Abnormal: Below low normal; Units: %; Status: F Test: MONO %; Value: 4.4; Range: 0.0-5.0; Units: %; Status: F Test: EOS %; Value: 3.2; Range: 0.0-3.0; Abnormal: Above high normal; Units: %; Status: F Test: BASO %; Value: 0.6; Range: 0.0-1.0; Units: %; Status: F Test: LARGE UNSTAINED CELL %; Value: 3.2; Range: 0.0-4.0; Units: %; Status: F Test: NEUTROPHILS #; Value: 3.0; Range: 1.8-7.7; Units: K/mm3; Status: F Test: LYMPH #; Value: 0.7; Range: 1.5-4.5; Abnormal: Below low normal; Units: K/mm3; Status: F Test: MONO #; Value: 0.2; Range: 0.0-0.8; Units: K/mm3; Status: F Test: EOS #; Value: 0.1; Range: 0.0-0.50; Units: K/mm3; Status: F Test: BASO #; Value: 0.0; Range: 0.0-0.2; Units: K/mm3; Status: F Test: LARGE UNSTAINED CELL #; Value: 0.1; Range: 0.0-0.4; Units: K/mm3; Status: F Lab Order: MED Profile; SPEC'M 06/05/16 06:09 Test: GLUCOSE, FASTING; Value: 110; Range: 70-105; Abnormal: Above high normal; Units: MG/DL; Status: F Test: BLOOD UREA NITROGEN; Value: 5; Range: 7-18; Abnormal: Below low normal; Units: MG/DL; Status: F Test: CREATININE FOR GFR; Value: 0.54; Range: 0.70-1.30; Abnormal: Below low normal; Units: MG/DL; Status: F Test: GLOMERULAR FILTRATION RATE; Value: > 60.0; Range: >60; Status: F Test: SODIUM LEVEL; Value: 143; Range: 136-145; Units: MEQ/L; Status: F Test: POTASSIUM SERUM; Value: 2.9; Range: 3.5-5.1; Abnormal: Critical Low; Units: MEQ/L; Status: F Test: CHLORIDE LEVEL; Value: 104; Range: 98-107; Units: MEQ/L; Status: F Test: CARBON DIOXIDE LEVEL; Value: 30; Range: 21-32; Units: MEQ/L; Status: F Test: ANION GAP; Value: 9; Range: 8-16; Units: MEQ/L; Status: F Test: CALCIUM LEVEL; Value: 8.5; Range: 8.5-10.1; Units: MG/DL; Status: F Test Note: ; Units are mL/min/1.73 m2 Chronic Kidney Disease Staging per NKF: Stage I & II GFR >=60 Normal to Mildly Decreased Stage III GFR 30-59 Moderately Decreased Stage IV GFR 15-29 Severely Decreased Stage V GFR <15 Very Little GFR Left ESRD GFR <15 on SWIMMING POOL CLEANER Lab Order: Liver Profile; SPEC'M 06/05/16 06:09 Test: AST/SGOT; Value: 763; Range: 15-37; Abnormal: Above high normal; Units: U/L; Status: F Test: ALT/SGPT; Value: 599; Range: 12-78; Abnormal: Above high normal; Units: U/L; Status: F Test: ALKALINE PHOSPHATASE; Value: 98; Range: 45-117; Units: U/L; Status: F Test: BILIRUBIN,TOTAL; Value: 2.8; Range: 0.2-1.0; Abnormal: Above high normal; Units: MG/DL; Status: F Test: BILIRUBIN,DIRECT; Value: 0.7; Range: 0.0-0.2; Abnormal: Above high normal; Units: MG/DL; Status: F Test: TOTAL PROTEIN; Value: 8.0; Range: 6.4-8.2; Units: GM/DL; Status: F Test: ALBUMIN; Value: 3.5; Range: 3.2-5.2; Units: GM/DL; Status: F Test: ALBUMIN/GLOBULIN RATIO; Value: 0.78; Range: 1.00-1.93; Abnormal: Below low normal; Status: F Lab Order: Amylase; [facility] 06/05/16 06:09 Test: AMYLASE; Value: 42; Range: 25-115; Units: U/L; Status: F Lab Order: Lipase; [facility] 06/05/16 06:09 Test: LIPASE; Value: 102; Range: 73-393; Units: U/L; Status: F Lab Order: Alcohol; [facility] 06/05/16 06:09 Test: ETHYL ALCOHOL (ETHANOL); Value: 0.227; Range: 0.000-0.010; Abnormal: Above high normal; Units: %; Status: F Lab Order: Urinalysis; [facility] 06/05/16 06:09 Test: APPEARANCE, URINE; Value: CLEAR; Range: CLEAR; Status: F Test: COLOR, URINE; Value: YELLOW; Range: YELLOW; Status: F Test: PH,URINE; Value: 8.0; Range: 5.0-9.0; Units: UNITS; Status: F Test: SPECIFIC GRAVITY URINE AUTO; Value: 1.005; Range: 1.002-1.035; Status: F Test: PROTEIN, URINE AUTO; Value: NEGATIVE; Range: NEGATIVE; Units: mg/dL; Status: F Test: GLUCOSE, URINE (UA) AUTO; Value: NEGATIVE; Range: NEGATIVE; Units: mg/dL; Status: F Test: KETONE, URINE AUTO; Value: NEGATIVE; Range: NEGATIVE; Units: mg/dL; Status: F Test: UROBILINOGEN, URINE AUTO; Value: 4.0; Range: 0.0-2.0; Abnormal: Above high normal; Units: mg/dL; Status: F Test: BILIRUBIN, URINE AUTO; Value: NEGATIVE; Range: NEGATIVE; Status: F Test: NITRITE, URINE AUTO; Value: NEGATIVE; Range: NEGATIVE; Status: F Test: LEUKOCYTE ESTERASE, URINE AUTO; Value: NEGATIVE; Range: NEGATIVE; Status: F Test: BLOOD, URINE BLOOD; Value: 2+; Range: NEGATIVE; Abnormal: Above high normal; Status: F Test: WBC, URINE AUTO; Value: 0; Range: 0-3; Units: /HPF; Status: F Test: RBC, URINE AUTO; Value: 1; Range: 0-3; Units: /HPF; Status: F Test: BACTERIA, URINE AUTO; Value: NEGATIVE; Range: NEGATIVE; Status: F Test: SQUAMOUS EPITHELIAL CELL UR AU; Value: 0; Range: 0-6; Units: /HPF; Status: F Test: MUCUS, URINE; Value: SMALL; Range: NEGATIVE; Status: F Test: HYALINE CAST, URINE AUTO; Value: 0; Range: 0-1; Units: /LPF; Status: F Lab Order: Pt & Aptt; SPEC'M 06/05/16 06:41 Test: PROTHROMBIN TIME; Value: 17.8; Range: 12.3-14.5; Abnormal: Above high normal; Units: SECONDS; Status: F Test: INR; Value: 1.46; Status: F Test: PARTIAL THROMBOPLASTIN TIME; Value: 32.1; Range: 26.6-37.1; Units: SECONDS; Status: F Test Note: ; THERAPUTIC HUMAN INR VALUES INDICATIONS NORMAL RANGES PROPHYLAXIS/TREATMENT OF: VENOUS THROMBOSIS 2.0-3.0 PULMONARY EMBOLISM 2.0-3.0 PREVENTION OF SYSTEMIC EMBOLISM FROM: TISSUE HEART VALVES 2.0-3.0 ACUTE MYOCARDIAL INFARCTION 2.0-3.0 VALVULAR HEART DISEASE 2.0-3.0 ATRIAL FIBRILLATION 2.0-3.0 MECHANICAL VALVES(HIGH RISK) 2.5-3.5 RECURRENT MYOCARDIAL INFARCTION 2.5-3.5 Lab Order: Lactic Acid (Cardozo tube on ice); SPEC'M 06/05/16 06:41 Test: LACTIC ACID LEVEL, LACTATE; Value: 1.4; Range: 0.4-2.0; Units: MMOL/L; Status: F Radiology Order: LIVER US Test: LIVER US REASON FOR EXAMINATION: elevated LFTS/Bili;Abd. Pain - Generalized, Nn-focal Exam; Clinical: Abdominal pain with elevated liver function tests and history of; cirrhosis.; ; Technique: Real time cardozo scale ultrasound examination using curved array; transducer. Color Doppler evaluation of the hepatic vasculature performed.; ; Findings:; The patient is status post cholecystectomy. Liver demonstrates a coarsened; echotexture with subtle nodular contour compatible with cirrhosis and that the; pancreas is unremarkable. There is no evidence for biliary ductal dilatation and; the common bile duct measures 3 mm diameter. The right kidney is normal in; reniform shape without hydronephrosis and measures 13.1 x 5.8 x 6.5 cm. No; ascites in the visualized right upper quadrant.; ; Color Doppler evaluation demonstrates a recanalized umbilical vein hepatofugal; flow at approximately 45 cm/sec main portal vein measures 17 mm diameter and; demonstrates hepatopetal flow at 21 cm/sec.; ; Impression:; Evidence for cirrhosis with portal hypertension.; ; ; ; ; Signed by; Heraclio Suárez MD 06/05/2016 09:09 A; Outcome: 09:38 Patient left against medical advice. sd1 09:50 Discharge Assessment: patient administered narcotics - yes. Pt provided with safe dy discharge. The following High Risk Discharge criteria are identified: Yes, pt leaving AMA. refused PSA intervention. The patient is leaving AMA: AMA form signed, Notification of AMA status is made to the charge nurse, the social media campaign manager, the ED attending physician. Condition: stable. Property :Personal belongings accompany Pt. 09:51 Ultrasound Study completed. dy 09:51 Patient left the ED. dy Signatures: Dispatcher [employer] EDMS Kay Villa MD MD sd1 Claudia Ahuja, Sales Account Manager Unit deg Akhil Murry RN RN dy Shannan Thakur RN RN hs1 Rogers Shafer, DO cs11 Morro, Mariola, TOOL PROGRAMMER TOOL PROGRAMMER tmm1 Juancho Feliciano rn1 Triny Mejias RN RN nn1 Nikolay Valdez, TOOL PROGRAMMER TOOL PROGRAMMER jmv Loretta Eller,RN RN tm5 Ge Vines, Reg Reg pm4 MTDD
--- NOTE | 2016-06-07 10:52 | EDDOCDS ---
Physician Documentation [facility] Name: Phong Stafford Age: 36 yrs Sex: Male : 1980 Arrival Date: 06/05/2016 Time: 05:37 Bed 15 Private MD: No Pcp Disposition: 06/05/16 09:38 Patient has left against medical advice. Impression: Alcoholic hepatitis. - Patients states they are going to Home/Self Care. - Condition is Fair. - Discharge Instructions: Alcoholic Hepatitis. Medication Reconciliation, Local Pharmacy Hours form. [facility] up: [facility]; When: Call to arrange an appointment. - Problem is chronic. - Symptoms have worsened. Historical: - Allergies: No known drug Allergies; - PMHx: Anxiety; Cirrhosis; Depression; Gall Bladder Disease; Hepatitis; Hypertension; Pancreatitis; - PSHx: Knee Arthroplasty, Left; Cholecystectomy; abdominal surgery; - Social history: Smoking status: Patient uses tobacco products, heavy tobacco smoker. No barriers to communication noted, The patient speaks fluent Kyrgyz, Speaks appropriately for age. - Family history: Not pertinent. - : The pt / caregiver states he / she is not on anticoagulants. Home medication list is obtained from the patient. - Exposure Risk Screening:: None identified. Vital Signs: 06/05 05:51 BP 144 / 89; Pulse 107; Resp 20; Temp 97.4(O); Pulse Ox 100% on R/A; Weight 88.45 kg / jmv 195 lbs (R); Height 5 ft. 11 in. (180.34 cm) (R); Pain 8/10; 05:51 Body Mass Index 27.20 (88.45 kg, 180.34 cm) jmv MDM: 06:04 NS 0.9% 500 ml IV at bolus once ordered. cs11 06:04 CBC with Diff Ordered. EDMS 06:04 MED Profile Ordered. EDMS 06:04 Liver Profile Ordered. EDMS 06:04 Amylase Ordered. EDMS 06:04 Lipase Ordered. EDMS 06:04 Alcohol Ordered. EDMS 06:04 Urinalysis Ordered. EDMS 06:04 Pt & Aptt Ordered. EDMS 06:04 Lactic Acid (Cardozo tube on ice) Ordered. EDMS 06:04 Urine Culture Ordered. EDMS 06:21 Financial registration complete. pm4 06:33 [facility] Payment Agreement was scanned into [employer] and attached to record. pm4 06:58 morphine 2 mg IVP once ordered. cs11 07:32 CBC with Diff Reviewed. sd1 07:32 MED Profile Reviewed. sd1 07:32 Liver Profile Reviewed. sd1 07:32 Alcohol Reviewed. sd1 07:32 Pt & Aptt Reviewed. sd1 07:32 Amylase Reviewed. sd1 07:32 Lipase Reviewed. sd1 07:32 Lactic Acid (Cardozo tube on ice) Reviewed. sd1 07:32 Potassium Chloride Extended Release Tablet 40 mEq PO once ordered. sd1 07:39 Hepatitis Profile Ordered. EDMS 07:39 morphine 4 mg IVP every 15 minutes; Document pain score/vitals after each dose (Hold if sd1 SBP < 90mmHg) x2 ordered. 07:50 LIVER US Ordered. EDMS 13:10 Refusal of Services was scanned into [employer] and attached to record. 13:10 T-Sheet-- Draft Copy was scanned into [employer] and attached to record. gb Administered Medications: 06:14 Drug: NS 0.9% 500 ml [sodium chloride 0.9 % intravenous solution] Route: IV; Rate: tm5 bolus; Site: left antecubital; 07:08 Drug: morphine 2 mg [morphine 2 mg/mL intravenous cartridge (1 mL)] Route: IVP; Site: hs1 left upper arm; 09:15 Drug: Potassium Chloride 40 mEq [potassium chloride ER 10 mEq tablet,extended release hs1 (4 tabs)] Route: PO; 09:15 Drug: morphine 4 mg [morphine 4 mg/mL intravenous cartridge (1 mL)] Route: IVP; Site: hs1 left upper arm; Signatures: Dispatcher MedHost EDMS Kay Villa MD MD sd1 Carmelita Smalls, Reg Reg gb Akhil Murry RN RN Rogers Carver DO DO cs11 Triny MejiasRN RN nn1 Loretta Eller RN RN tm5 Ge Vines, Reg Reg pm4 Shannan Thakur RN hs1 The chart was reviewed and I authenticate all verbal orders and agree with the evaluation and treatment provided.Corrections: (The following items were deleted from the chart) 07:50 07:34 GALLBLADDER US+US ordered. EDMS EDMS Attachments: 06:33 [facility] Payment Agreement pm4 13:10 T-Sheet-- Draft Copy gb Chart Complete MTDD
--- NOTE | 2016-06-07 10:52 | EDDOCDS ---
Nurse's Notes [facility] Name: Phong Stafford Age: 36 yrs Sex: Male : 1980 Arrival Date: 06/05/2016 Time: 05:37 Bed 15 Private MD: No Pcp Diagnosis: Alcoholic hepatitis Presentation: 06/05 05:41 Presenting complaint: EMS states: patient reporting right side upper abdominal pain. nn1 Patient has cirrhosis of the liver, admits to consuming alcohol tonight. 05:41 Method Of Arrival: Ambulance nn1 05:48 Risk factors: the patient reports not having a history of previous torsion. Adult nn1 Sepsis Screening: The patient does not have new or worsening altered mentation. Patient's respiratory rate is less than 22. Systolic blood pressure is greater than 100. Patient has a qSOFA score of 0- Negative Sepsis Screen. Suicide/Homicide risk assessment- the patient denies having any suicidal and/or homicidal ideations and does not present with any other emotional, behavioral or mental health complaints. Status: Patient is not a teleservices representative or dependent. Transition of care: patient was not received from another setting of care. 05:48 Acuity: ALEXSANDER Level 3 nn1 Triage Assessment: 05:49 General: Appears in no apparent distress, uncomfortable, Behavior is appropriate for nn1 age, cooperative. Pain: Location: right upper quadrant Pain currently is 9 out of 10 on a pain scale. HIV screening NA for this visit Offered previously. The patient is triaged at the bedside. See Assessment in Nurses Notes section of ED record. Neurological: Level of Consciousness is awake, alert. GI: Abdomen is flat, non- distended Bowel sounds present X 4 quads. Abd is tender to palpation in right upper quadrant and right lower quadrant. Derm: Skin is pink, warm & dry. Historical: - Allergies: No known drug Allergies; - PMHx: Anxiety; Cirrhosis; Depression; Gall Bladder Disease; Hepatitis; Hypertension; Pancreatitis; - PSHx: Knee Arthroplasty, Left; Cholecystectomy; abdominal surgery; - Social history: Smoking status: Patient uses tobacco products, heavy tobacco smoker. No barriers to communication noted, The patient speaks fluent Gambian, Speaks appropriately for age. - Family history: Not pertinent. - : The pt / caregiver states he / she is not on anticoagulants. Home medication list is obtained from the patient. - Exposure Risk Screening:: None identified. Screenin:03 Screening information is obtained from the patient. Fall risk: No risks identified. tm5 Assistance ADL's: requires no assistance with activities of daily living. Abuse/DV Screen: The patient / caregiver reports he/she is: not in a situation that causes fear, pain or injury. Nutritional screening: No deficits noted. Advance Directives: There is no active DNR order. home support is adequate. Assessment: 06:03 General: Appears in no apparent distress, Behavior is agitated. Pain: Location: right tm5 upper quadrant Pain currently is 10 out of 10 on a pain scale. Quality of pain is described as sharp, stabbing. Neurological: Level of Consciousness is awake, alert, Oriented to person, place, time. Respiratory: Airway is patent Respiratory effort is even, unlabored, Respiratory pattern is regular, symmetrical, Breath sounds are clear bilaterally. GI: Abdomen is non- distended Bowel sounds present X 4 quads. Reports nausea, vomiting. : No deficits noted. Derm: Skin is pink, warm & dry. normal. 06:18 General: pt ringing call pfeiffer asking for pain meds again, told pt that MD is aware of tm5 his pain complaints & MD has not written any orders at this time, pt then asking to speak to MD which MD is aware of . 07:02 General: patient and SO found laying in bed together this morning. Pt complaining that hs1 "IV went in too fast and why does he have to pee so much?" Patient given 2 mg morphine per order. Patient reports pain in abdomen stabbing. . 09:08 General: Pt returned from ultrasound at this time. Patient states resting in bed hs1 painful 8/10. Patients SO still in bed with patient. Patient administered medication. Patient states drinking water will make him throw up, if he drinks more. Pt told that if he felt nauseated to alert nursing staff and that we would get nausea medication. Patient also demands water be left at bedside. . 09:40 General: Appears in no apparent distress, Behavior is agitated, anxious, pt requesting dy to leave AMA due to "having to be to work right now!". pt alert and oriented with no signs of pain or distress. pt signed AMA paperwork and Dr. Beck signed pt out with discharge instructions. pt SO is driving patient home. Vital Signs: 05:51 BP 144 / 89; Pulse 107; Resp 20; Temp 97.4(O); Pulse Ox 100% on R/A; Weight 88.45 kg jmv (R); Height 5 ft. 11 in. (180.34 cm) (R); Pain 8/10; 05:51 Body Mass Index 27.20 (88.45 kg, 180.34 cm) [facility] Vitals: 09:51 Log In Time: June 05, 2016 at 05:37. dy ED Course: 05:38 Patient visited by Mariola Hooker PCA. tmm1 05:38 Patient moved to Waiting tmm1 05:40 No Pcp is Private Physician. tmm1 05:40 Patient moved to 15 tmm1 05:48 Triage Initiated nn1 05:51 Pt greeted and oriented to ED. Patient advised of names of staff involved in care, v location of call pfeiffer, wait times and NPO status. Patient has correct armband on for positive identification. Placed in gown. Bed in low position. Call light in reach. Side rails up X2. Pulse ox on. NIBP on. 05:52 Patient visited by Nikolay Valdez PCA. jmv 05:56 Rogers Shafer DO is Attending Physician. cs11 05:56 Patient visited by Rogers Shafer DO. cs11 06:03 Loretta Eller RN is Primary Nurse. tm5 06:03 Patient visited by Loretta Eller RN. tm5 06:03 ED physician to see patient. tm5 06:03 The patient / caregiver is instructed regarding the plan of care and ED course. tm5 06:03 Inserted saline lock: 20 gauge in left antecubital area and blood collected. The tm5 patient tolerated the procedure well. 06:06 Alcohol Sent. tm5 06:06 Lipase Sent. tm5 06:06 Amylase Sent. tm5 06:06 Liver Profile Sent. tm5 06:06 MED Profile Sent. tm5 06:06 CBC with Diff Sent. tm5 06:14 Notified attending ED physician of pt asking several times for pain medications since tm5 his arrival, no new orders at this time. 06:18 Patient visited by Loretta Eller RN. tm5 06:33 [facility] Payment Agreement was scanned into [employer] and attached to record. pm4 06:46 Patient visited by Loretta Eller RN. tm5 07:02 Attending Physician role handed off by Rogers Shafer DO sd1 07:02 Kay Villa MD is Attending Physician. sd1 07:04 Shannan Thakur RN is Primary Nurse. hs1 07:09 Primary Nurse role handed off by Loretta Eller RN deg 07:28 Patient visited by Shanann Thakur RN. hs1 07:35 Urine Culture Sent. rn1 07:35 Urinalysis Sent. rn1 08:20 Patient visited by Shannan Thakur RN. hs1 08:21 Patient moved to Ultrasound hs1 09:08 Patient visited by Shannan Thakur RN. hs1 09:08 Patient moved to 15 hs1 09:13 Patient visited by Shannan Thakur RN. hs1 09:26 LIVER US Returned. EDMS 09:38 [facility] is Referral Physician. sd1 09:50 Discontinued lock intact, bleeding controlled, pressure dressing applied, No dy redness/swelling at site. No procedures done that require assistance. 13:10 Refusal of Services was scanned into [employer] and attached to record. gb 13:10 T-Sheet-- Draft Copy was scanned into [employer] and attached to record. gb Administered Medications: 06:14 Drug: NS 0.9% 500 ml [sodium chloride 0.9 % intravenous solution] Route: IV; Rate: tm5 bolus; Site: left antecubital; 07:08 Drug: morphine 2 mg [morphine 2 mg/mL intravenous cartridge (1 mL)] Route: IVP; Site: hs1 left upper arm; 09:15 Drug: Potassium Chloride 40 mEq [potassium chloride ER 10 mEq tablet,extended release hs1 (4 tabs)] Route: PO; 09:15 Drug: morphine 4 mg [morphine 4 mg/mL intravenous cartridge (1 mL)] Route: IVP; Site: hs1 left upper arm; Attachments: 13:10 Refusal of Services gb Order Results: Lab Order: CBC with Diff; SPEC'M 06/05/16 06:09 Test: WHITE BLOOD COUNT; Value: 4.2; Range: 4.0-10.0; Units: K/mm3; Status: F Test: RED BLOOD COUNT; Value: 4.61; Range: 4.30-6.10; Units: M/mm3; Status: F Test: HEMOGLOBIN; Value: 14.7; Range: 14.0-18.0; Units: g/dl; Status: F Test: HEMATOCRIT; Value: 40.7; Range: 42.0-52.0; Abnormal: Below low normal; Units: %; Status: F Test: MEAN CORPUSCULAR VOLUME; Value: 88.2; Range: 80.0-96.0; Units: fl; Status: F Test: MEAN CORPUSCULAR HEMOGLOBIN; Value: 31.8; Range: 27.0-33.0; Units: pg; Status: F Test: MEAN CORPUSCULAR HGB CONC; Value: 36.0; Range: 32.0-36.5; Units: g/dl; Status: F Test: RED CELL DISTRIBUTION WIDTH; Value: 14.0; Range: 11.5-14.5; Units: %; Status: F Test: PLATELET COUNT, AUTOMATED; Value: 148; Range: 150-450; Abnormal: Below low normal; Units: k/mm3; Status: F Test: NEUTROPHILS %; Value: 71.4; Range: 36.0-66.0; Abnormal: Above high normal; Units: %; Status: F Test: LYMPH %; Value: 17.3; Range: 24.0-44.0; Abnormal: Below low normal; Units: %; Status: F Test: MONO %; Value: 4.4; Range: 0.0-5.0; Units: %; Status: F Test: EOS %; Value: 3.2; Range: 0.0-3.0; Abnormal: Above high normal; Units: %; Status: F Test: BASO %; Value: 0.6; Range: 0.0-1.0; Units: %; Status: F Test: LARGE UNSTAINED CELL %; Value: 3.2; Range: 0.0-4.0; Units: %; Status: F Test: NEUTROPHILS #; Value: 3.0; Range: 1.8-7.7; Units: K/mm3; Status: F Test: LYMPH #; Value: 0.7; Range: 1.5-4.5; Abnormal: Below low normal; Units: K/mm3; Status: F Test: MONO #; Value: 0.2; Range: 0.0-0.8; Units: K/mm3; Status: F Test: EOS #; Value: 0.1; Range: 0.0-0.50; Units: K/mm3; Status: F Test: BASO #; Value: 0.0; Range: 0.0-0.2; Units: K/mm3; Status: F Test: LARGE UNSTAINED CELL #; Value: 0.1; Range: 0.0-0.4; Units: K/mm3; Status: F Lab Order: MED Profile; SPEC'M 06/05/16 06:09 Test: GLUCOSE, FASTING; Value: 110; Range: 70-105; Abnormal: Above high normal; Units: MG/DL; Status: F Test: BLOOD UREA NITROGEN; Value: 5; Range: 7-18; Abnormal: Below low normal; Units: MG/DL; Status: F Test: CREATININE FOR GFR; Value: 0.54; Range: 0.70-1.30; Abnormal: Below low normal; Units: MG/DL; Status: F Test: GLOMERULAR FILTRATION RATE; Value: > 60.0; Range: >60; Status: F Test: SODIUM LEVEL; Value: 143; Range: 136-145; Units: MEQ/L; Status: F Test: POTASSIUM SERUM; Value: 2.9; Range: 3.5-5.1; Abnormal: Critical Low; Units: MEQ/L; Status: F Test: CHLORIDE LEVEL; Value: 104; Range: 98-107; Units: MEQ/L; Status: F Test: CARBON DIOXIDE LEVEL; Value: 30; Range: 21-32; Units: MEQ/L; Status: F Test: ANION GAP; Value: 9; Range: 8-16; Units: MEQ/L; Status: F Test: CALCIUM LEVEL; Value: 8.5; Range: 8.5-10.1; Units: MG/DL; Status: F Test Note: ; Units are mL/min/1.73 m2 Chronic Kidney Disease Staging per NKF: Stage I & II GFR >=60 Normal to Mildly Decreased Stage III GFR 30-59 Moderately Decreased Stage IV GFR 15-29 Severely Decreased Stage V GFR <15 Very Little GFR Left ESRD GFR <15 on FACTORY SUPERVISOR Lab Order: Liver Profile; SPEC'M 06/05/16 06:09 Test: AST/SGOT; Value: 763; Range: 15-37; Abnormal: Above high normal; Units: U/L; Status: F Test: ALT/SGPT; Value: 599; Range: 12-78; Abnormal: Above high normal; Units: U/L; Status: F Test: ALKALINE PHOSPHATASE; Value: 98; Range: 45-117; Units: U/L; Status: F Test: BILIRUBIN,TOTAL; Value: 2.8; Range: 0.2-1.0; Abnormal: Above high normal; Units: MG/DL; Status: F Test: BILIRUBIN,DIRECT; Value: 0.7; Range: 0.0-0.2; Abnormal: Above high normal; Units: MG/DL; Status: F Test: TOTAL PROTEIN; Value: 8.0; Range: 6.4-8.2; Units: GM/DL; Status: F Test: ALBUMIN; Value: 3.5; Range: 3.2-5.2; Units: GM/DL; Status: F Test: ALBUMIN/GLOBULIN RATIO; Value: 0.78; Range: 1.00-1.93; Abnormal: Below low normal; Status: F Lab Order: Amylase; SPEC06/05/16 06:09 Test: AMYLASE; Value: 42; Range: 25-115; Units: U/L; Status: F Lab Order: Lipase; 06/05/16 06:09 Test: LIPASE; Value: 102; Range: 73-393; Units: U/L; Status: F Lab Order: Alcohol; 06/05/16 06:09 Test: ETHYL ALCOHOL (ETHANOL); Value: 0.227; Range: 0.000-0.010; Abnormal: Above high normal; Units: %; Status: F Lab Order: Urinalysis; SPEC06/05/16 06:09 Test: APPEARANCE, URINE; Value: CLEAR; Range: CLEAR; Status: F Test: COLOR, URINE; Value: YELLOW; Range: YELLOW; Status: F Test: PH,URINE; Value: 8.0; Range: 5.0-9.0; Units: UNITS; Status: F Test: SPECIFIC GRAVITY URINE AUTO; Value: 1.005; Range: 1.002-1.035; Status: F Test: PROTEIN, URINE AUTO; Value: NEGATIVE; Range: NEGATIVE; Units: mg/dL; Status: F Test: GLUCOSE, URINE (UA) AUTO; Value: NEGATIVE; Range: NEGATIVE; Units: mg/dL; Status: F Test: KETONE, URINE AUTO; Value: NEGATIVE; Range: NEGATIVE; Units: mg/dL; Status: F Test: UROBILINOGEN, URINE AUTO; Value: 4.0; Range: 0.0-2.0; Abnormal: Above high normal; Units: mg/dL; Status: F Test: BILIRUBIN, URINE AUTO; Value: NEGATIVE; Range: NEGATIVE; Status: F Test: NITRITE, URINE AUTO; Value: NEGATIVE; Range: NEGATIVE; Status: F Test: LEUKOCYTE ESTERASE, URINE AUTO; Value: NEGATIVE; Range: NEGATIVE; Status: F Test: BLOOD, URINE BLOOD; Value: 2+; Range: NEGATIVE; Abnormal: Above high normal; Status: F Test: WBC, URINE AUTO; Value: 0; Range: 0-3; Units: /HPF; Status: F Test: RBC, URINE AUTO; Value: 1; Range: 0-3; Units: /HPF; Status: F Test: BACTERIA, URINE AUTO; Value: NEGATIVE; Range: NEGATIVE; Status: F Test: SQUAMOUS EPITHELIAL CELL UR AU; Value: 0; Range: 0-6; Units: /HPF; Status: F Test: MUCUS, URINE; Value: SMALL; Range: NEGATIVE; Status: F Test: HYALINE CAST, URINE AUTO; Value: 0; Range: 0-1; Units: /LPF; Status: F Lab Order: Urine Culture; SPEC'M 06/05/16 06:09 Test: URINE CULTURE; Value: URINE CULTURE RESULT NO GROWTH; Status: F Lab Order: Pt & Aptt; SPEC'M 06/05/16 06:41 Test: PROTHROMBIN TIME; Value: 17.8; Range: 12.3-14.5; Abnormal: Above high normal; Units: SECONDS; Status: F Test: INR; Value: 1.46; Status: F Test: PARTIAL THROMBOPLASTIN TIME; Value: 32.1; Range: 26.6-37.1; Units: SECONDS; Status: F Test Note: ; THERAPUTIC HUMAN INR VALUES INDICATIONS NORMAL RANGES PROPHYLAXIS/TREATMENT OF: VENOUS THROMBOSIS 2.0-3.0 PULMONARY EMBOLISM 2.0-3.0 PREVENTION OF SYSTEMIC EMBOLISM FROM: TISSUE HEART VALVES 2.0-3.0 ACUTE MYOCARDIAL INFARCTION 2.0-3.0 VALVULAR HEART DISEASE 2.0-3.0 ATRIAL FIBRILLATION 2.0-3.0 MECHANICAL VALVES(HIGH RISK) 2.5-3.5 RECURRENT MYOCARDIAL INFARCTION 2.5-3.5 Lab Order: Lactic Acid (Cardozo tube on ice); SPEC'M 06/05/16 06:41 Test: LACTIC ACID LEVEL, LACTATE; Value: 1.4; Range: 0.4-2.0; Units: MMOL/L; Status: F Lab Order: Hepatitis Profile; SPEC'M 06/05/16 06:02 Test: HEPATITIS C VIRUS MIQUEL INDEX; Range: <0.8; Units: INDEX; Status: I Test: HEPATITIS B SURFACE ANTIGEN; Value: NEGATIVE; Range: NEGATIVE; Status: F Test: HEPATITIS B CORE ANTIBODY IGM; Range: NEGATIVE; Status: I Test: HEPATITIS A ANTIBODY IGM; Range: NEGATIVE; Status: I Radiology Order: LIVER US Test: LIVER US REASON FOR EXAMINATION: elevated LFTS/Bili;Abd. Pain - Generalized, Nn-focal Exam; Clinical: Abdominal pain with elevated liver function tests and history of; cirrhosis.; ; Technique: Real time cardozo scale ultrasound examination using curved array; transducer. Color Doppler evaluation of the hepatic vasculature performed.; ; Findings:; The patient is status post cholecystectomy. Liver demonstrates a coarsened; echotexture with subtle nodular contour compatible with cirrhosis and that the; pancreas is unremarkable. There is no evidence for biliary ductal dilatation and; the common bile duct measures 3 mm diameter. The right kidney is normal in; reniform shape without hydronephrosis and measures 13.1 x 5.8 x 6.5 cm. No; ascites in the visualized right upper quadrant.; ; Color Doppler evaluation demonstrates a recanalized umbilical vein hepatofugal; flow at approximately 45 cm/sec main portal vein measures 17 mm diameter and; demonstrates hepatopetal flow at 21 cm/sec.; ; Impression:; Evidence for cirrhosis with portal hypertension.; ; ; ; ; Signed by; Heraclio Suárez MD 06/05/2016 09:09 A; Outcome: 09:38 Patient left against medical advice. sd1 09:50 Discharge Assessment: patient administered narcotics - yes. Pt provided with safe dy discharge. The following High Risk Discharge criteria are identified: Yes, pt leaving AMA. refused PSA intervention. The patient is leaving AMA: AMA form signed, Notification of AMA status is made to the charge nurse, the social science instructor, the ED attending physician. Condition: stable. Property :Personal belongings accompany Pt. 09:51 Ultrasound Study completed. dy 09:51 Patient left the ED. dy Signatures: Dispatcher Med[employer] EDMS Kay Villa MD MD sd1 Claudia Ahuja, [employer] Teacher Unit deg Carmelita Smalls, Reg Reg gb Akhil Murry, RN RN dy Shannan Thakur RN RN hs1 Rogers Shafer, DO cs11 Morro, Mariola, SUPERVISOR LIQUID YEAST SUPERVISOR LIQUID YEAST tmm1 Juancho Feliciano rn1 Triny Mejias,RN RN nn1 Nikolay Valdez, SUPERVISOR LIQUID YEAST SUPERVISOR LIQUID YEAST jmv Loretta Eller,RN RN tm5 Ge Vines, Reg Reg pm4 Chart Complete JBD
--- NOTE | 2016-06-07 10:52 | EDDOCDS ---
Physician Documentation [facility] Name: Phong Stafford Age: 36 yrs Sex: Male : 1980 Arrival Date: 06/05/2016 Time: 05:37 Bed 15 Private MD: No Pcp Disposition: 06/05/16 09:38 Patient has left against medical advice. Impression: Alcoholic hepatitis. - Patients states they are going to Home/Self Care. - Condition is Fair. - Discharge Instructions: Alcoholic Hepatitis. Medication Reconciliation, Local Pharmacy Hours form. Follow up: [facility]; When: Call to arrange an appointment. - Problem is chronic. - Symptoms have worsened. Historical: - Allergies: No known drug Allergies; - PMHx: Anxiety; Cirrhosis; Depression; Gall Bladder Disease; Hepatitis; Hypertension; Pancreatitis; - PSHx: Knee Arthroplasty, Left; Cholecystectomy; abdominal surgery; - Social history: Smoking status: Patient uses tobacco products, heavy tobacco smoker. No barriers to communication noted, The patient speaks fluent Slovak, Speaks appropriately for age. - Family history: Not pertinent. - : The pt / caregiver states he / she is not on anticoagulants. Home medication list is obtained from the patient. - Exposure Risk Screening:: None identified. Vital Signs: 06/05 05:51 BP 144 / 89; Pulse 107; Resp 20; Temp 97.4(O); Pulse Ox 100% on R/A; Weight 88.45 kg / jmv 195 lbs (R); Height 5 ft. 11 in. (180.34 cm) (R); Pain 8/10; 05:51 Body Mass Index 27.20 (88.45 kg, 180.34 cm) jmv MDM: 06:04 NS 0.9% 500 ml IV at bolus once ordered. cs11 06:04 CBC with Diff Ordered. EDMS 06:04 MED Profile Ordered. EDMS 06:04 Liver Profile Ordered. EDMS 06:04 Amylase Ordered. EDMS 06:04 Lipase Ordered. EDMS 06:04 Alcohol Ordered. EDMS 06:04 Urinalysis Ordered. EDMS 06:04 Pt & Aptt Ordered. EDMS 06:04 Lactic Acid (Cardozo tube on ice) Ordered. EDMS 06:04 Urine Culture Ordered. EDMS 06:21 Financial registration complete. pm4 06:33 [facility] Payment Agreement was scanned into [employer] and attached to record. pm4 06:58 morphine 2 mg IVP once ordered. cs11 07:32 CBC with Diff Reviewed. sd1 07:32 MED Profile Reviewed. sd1 07:32 Liver Profile Reviewed. sd1 07:32 Alcohol Reviewed. sd1 07:32 Pt & Aptt Reviewed. sd1 07:32 Amylase Reviewed. sd1 07:32 Lipase Reviewed. sd1 07:32 Lactic Acid (Cardozo tube on ice) Reviewed. sd1 07:32 Potassium Chloride Extended Release Tablet 40 mEq PO once ordered. sd1 07:39 Hepatitis Profile Ordered. EDMS 07:39 morphine 4 mg IVP every 15 minutes; Document pain score/vitals after each dose (Hold if sd1 SBP < 90mmHg) x2 ordered. 07:50 LIVER US Ordered. EDMS 13:10 Refusal of Services was scanned into [employer] and attached to record. 13:10 T-Sheet-- Draft Copy was scanned into [employer] and attached to record. gb Administered Medications: 06:14 Drug: NS 0.9% 500 ml [sodium chloride 0.9 % intravenous solution] Route: IV; Rate: tm5 bolus; Site: left antecubital; 07:08 Drug: morphine 2 mg [morphine 2 mg/mL intravenous cartridge (1 mL)] Route: IVP; Site: hs1 left upper arm; 09:15 Drug: Potassium Chloride 40 mEq [potassium chloride ER 10 mEq tablet,extended release hs1 (4 tabs)] Route: PO; 09:15 Drug: morphine 4 mg [morphine 4 mg/mL intravenous cartridge (1 mL)] Route: IVP; Site: hs1 left upper arm; Signatures: Dispatcher [employer] EDMS Kay Villa MD MD sd1 Carmelita Smalls, Reg Reg gb Akhil Murry RN RN Rogers Carver DO DO cs11 Triny MejiasRN RN nn1 Loretta Eller RN RN tm5 Ge Vines, Reg Reg pm4 Shannan Thakur RN hs1 The chart was reviewed and I authenticate all verbal orders and agree with the evaluation and treatment provided.Corrections: (The following items were deleted from the chart) 07:50 07:34 GALLBLADDER US+US ordered. EDMS EDMS Attachments: 06:33 [facility] Payment Agreement pm4 13:10 T-Sheet-- Draft Copy gb Chart Complete MTDD
== END 2016-06-05 09:43 | disposition left against medical advice (07) ==
LOC: M ED 05:37
DX: K76.6 Portal hypertension (principal); K74.60 Unspecified cirrhosis of liver; B19.9 Unspecified viral hepatitis without hepatic coma; F41.9 Anxiety disorder, unspecified; F32.9 Major depressive disorder, single episode, unspecified; Z90.49 Acquired absence of other specified parts of digestive tract; Z96.652 Presence of left artificial knee joint; F17.200 Nicotine dependence, unspecified, uncomplicated
CPT/HCPCS: 36415; 76705; 80048; 80076; 81001; 82150; 83605; 83690; 85025; 85610; 85730; 86705; 86709; 86803; 87086; 87340; 87521; 96374; 96376; 99284; G0480

== ENCOUNTER → 2016-07-19 | Outpatient (CLI) | payer OTHER ==
[2016-07-19 16:26] LABS: BASO % 0.5 % (0.0-1.0); EOS # 0.2 K/mm3 (0.0-0.50); EOS % 3.6 % (0.0-3.0); LARGE UNSTAINED CELL # 0.2 K/mm3 (0.0-0.4); LARGE UNSTAINED CELL % 2.7 % (0.0-4.0); LYMPH # 1.3 K/mm3 (1.5-4.5); LYMPH % 20.5 % (24.0-44.0); MEAN CORPUSCULAR HEMOGLOBIN 32.2 pg (27.0-33.0); MEAN CORPUSCULAR HGB CONC 36.3 g/dl (32.0-36.5); MEAN CORPUSCULAR VOLUME 88.7 fl (80.0-96.0); MONO # 0.3 K/mm3 (0.0-0.8); MONO % 5.1 % (0.0-5.0); NEUTROPHILS # 3.8 K/mm3 (1.8-7.7); NEUTROPHILS % 67.6 % (36.0-66.0); PLATELET COUNT, AUTOMATED 206 k/mm3 (150-450); RED CELL DISTRIBUTION WIDTH 13.4 % (11.5-14.5); WHITE BLOOD COUNT 5.6 K/mm3 (4.0-10.0)
[2016-07-19 16:49] LABS: ALBUMIN 3.6 GM/DL (3.2-5.2); ALBUMIN/GLOBULIN RATIO 0.78 (1.00-1.93); ALKALINE PHOSPHATASE 69 U/L (45-117); ALT/SGPT 51 U/L (12-78); ANION GAP 8 MEQ/L (8-16); AST/SGOT 41 U/L (15-37); BILIRUBIN,TOTAL 1.5 MG/DL (0.2-1.0); BLOOD UREA NITROGEN 11 MG/DL (7-18); CARBON DIOXIDE LEVEL 28 MEQ/L (21-32); CHLORIDE LEVEL 104 MEQ/L (98-107); CREATININE FOR GFR 0.71 MG/DL (0.70-1.30); GLOMERULAR FILTRATION RATE > 60.0 (>60); GLUCOSE, FASTING 101 MG/DL (70-105); SODIUM LEVEL 140 MEQ/L (136-145); TOTAL PROTEIN 8.2 GM/DL (6.4-8.2)
[2016-07-20 14:05] LABS: HIV SCRN NEGATIVE (NEGATIVE); HIV SCRN1 NEGATIVE (NEGATIVE)
[2016-07-20 14:06] LABS: CONTROL LINE INT CTR LINE PRESENT
== END ==
LOC: M LAB 15:52
PROVIDERS: ATTEND Family Medicine
DX: F11.20 Opioid dependence, uncomplicated (principal)

== ENCOUNTER 2016-10-26 16:29 | Emergency (ER) | payer OTHER ==
[~2016-10-26] VITALS: Ht 180.3 cm; Wt 90.7 kg
[2016-10-26] MEDS ORDERED: ATENOLOL 25 MG TAB PO ONE (19:00)
[2016-10-26] MEDS ORDERED: DICYCLOMINE INJ 20MG/2ML (J0500) IM ONE (19:45)
[2016-10-26] MEDS ORDERED: NS 1,000 ML IV ONE (19:45)
[2016-10-26 19:53] LABS: BASO % 0.6 % (0.0-1.0); EOS # 0.2 K/mm3 (0.0-0.50); EOS % 2.8 % (0.0-3.0); LARGE UNSTAINED CELL # 0.1 K/mm3 (0.0-0.4); LARGE UNSTAINED CELL % 1.6 % (0.0-4.0); LYMPH # 1.3 K/mm3 (1.5-4.5); LYMPH % 20.3 % (24.0-44.0); MEAN CORPUSCULAR HEMOGLOBIN 31.8 pg (27.0-33.0); MEAN CORPUSCULAR HGB CONC 36.2 g/dl (32.0-36.5); MEAN CORPUSCULAR VOLUME 87.8 fl (80.0-96.0); MONO # 0.3 K/mm3 (0.0-0.8); MONO % 4.3 % (0.0-5.0); NEUTROPHILS # 4.5 K/mm3 (1.8-7.7); NEUTROPHILS % 70.4 % (36.0-66.0); PLATELET COUNT, AUTOMATED 170 k/mm3 (150-450); RED CELL DISTRIBUTION WIDTH 13.6 % (11.5-14.5); WHITE BLOOD COUNT 6.4 K/mm3 (4.0-10.0)
[2016-10-26 20:08] LABS: INR 1.22
[2016-10-26 20:22] LABS: ALBUMIN 3.6 GM/DL (3.2-5.2); ALBUMIN/GLOBULIN RATIO 0.92 (1.00-1.93); ALKALINE PHOSPHATASE 50 U/L (45-117); ALT/SGPT 91 U/L (12-78); ANION GAP 7 MEQ/L (8-16); AST/SGOT 41 U/L (15-37); BILIRUBIN,DIRECT 0.4 MG/DL (0.0-0.2); BILIRUBIN,TOTAL 1.8 MG/DL (0.2-1.0); BLOOD UREA NITROGEN 9 MG/DL (7-18); CALCIUM LEVEL 8.9 MG/DL (8.5-10.1); CARBON DIOXIDE LEVEL 27 MEQ/L (21-32); CHLORIDE LEVEL 105 MEQ/L (98-107); CREATININE FOR GFR 0.49 MG/DL (0.70-1.30); GLOMERULAR FILTRATION RATE > 60.0 (>60); GLUCOSE, FASTING 91 MG/DL (70-105); POTASSIUM SERUM 3.6 MEQ/L (3.5-5.1); SODIUM LEVEL 139 MEQ/L (136-145); TOTAL PROTEIN 7.5 GM/DL (6.4-8.2)
[2016-10-26 20:30] LABS: METHADONE URINE NEGATIVE (NEGATIVE)
[2016-10-26] MEDS ORDERED: BENT20TA PO (21:04)
[2016-10-26 21:10] VITALS: BP 138/72
[2016-10-26] MEDS ORDERED: GI COCKTAIL 50ML BTL(HYOSCYAMINE/MAALOX/LIDOCAINE VISCOUS)(1:3:1) PO ONE (21:15)
== END 2016-10-26 21:15 | disposition home or self-care (01) ==
LOC: M ED 17:02
DX: R10.9 Unspecified abdominal pain (principal); B18.2 Chronic viral hepatitis C; F10.10 Alcohol abuse, uncomplicated; F32.9 Major depressive disorder, single episode, unspecified; F41.9 Anxiety disorder, unspecified; K74.60 Unspecified cirrhosis of liver
CPT/HCPCS: 80048; 80076; 80306; 82140; 83690; 85025; 85610; 96372; 99283; G0480; J0500

== ENCOUNTER 2018-08-13 03:09 | Emergency (ER) | payer MEDICAID, OTHER, SELFPAY ==
[~2018-08-13] VITALS: Ht 175.3 cm; Wt 86.4 kg
[~2018-08-13 03:09] MED LIST changes: -/FENT50PA TD; -/FENT75PA; -/FENT75PA TD; -/ONDA4TA OR; -/PANT40TA PO; +BENT20TA PO; +CIPR-249 PO; -CIPR500T89 PO; +CITR1SOL PO; +FENT1DIS15 TD; +FENT1DIS16; +FENT1DIS16 TD; +FOLI1TAB11 PO; -FOLI1TAB2 PO; +LEVA1TAB2 PO; -LEVA500T PO; -LYRI100C10 PO; -MAGNSO PO; -MS C30TA PO; +MS C30TA6 PO; +NICO21DI3 EXT; +NICO21DI3 TD; +NICO21DI34 TD; -NICO21PAT EXT; -NICO21PAT TD; -NICODIS TD; +ONDA-1 OR; +OXYC-517 PO; -OXYCO5TA PO; +PANT40TA3 PO; +PREG100CA PO; +PROT1TAB2 PO; +TRAZ-163 PO; -TRAZ100T4 PO
[2018-08-13 03:31] VITALS: BP 145/82
[2018-08-13] MEDS ORDERED: CLONI1TA PO (03:32)
== END 2018-08-13 03:45 | disposition left against medical advice (07) ==
LOC: M ED 03:09
DX: R10.9 Unspecified abdominal pain (principal); Z53.21 Procedure and treatment not carried out due to patient leaving prior to being seen by health care provider

== ENCOUNTER 2019-03-29 06:33 | Emergency (ER) | payer MEDICAID ==
[~2019-03-29] VITALS: Ht 177.8 cm; Wt 90.9 kg
[~2019-03-29 06:33] MED LIST changes: +CLONI1TA PO; -MAGN400T PO; +MAGN400T3 PO
[2019-03-29 07:42] LABS: HEMATOCRIT 34.3 % (42.0-52.0); HEMOGLOBIN 11.8 g/dl (13.5-17.5); MEAN CORPUSCULAR HEMOGLOBIN 31.4 pg (27.0-33.0); MEAN CORPUSCULAR HGB CONC 34.4 g/dl (32.0-36.5); MEAN CORPUSCULAR VOLUME 91.2 fl (80.0-96.0); PLATELET COUNT, AUTOMATED 140 10^3/uL (150-450); RED BLOOD COUNT 3.76 10^6/uL (4.30-6.10); WHITE BLOOD COUNT 4.8 10^3/uL (4.0-10.0)
[2019-03-29] MEDS ORDERED: IBUPROFEN 600 MG TAB PO ONE (07:45)
[2019-03-29 08:12] LABS: ALBUMIN 3.6 GM/DL (3.2-5.2); ALT/SGPT 109 U/L (12-78); BILIRUBIN,DIRECT 0.7 MG/DL (0.0-0.2); BILIRUBIN,TOTAL 1.7 MG/DL (0.2-1.0); BLOOD UREA NITROGEN 8 MG/DL (7-18); CALCIUM LEVEL 8.6 MG/DL (8.5-10.1); CARBON DIOXIDE LEVEL 30 MEQ/L (21-32); CHLORIDE LEVEL 103 MEQ/L (98-107); CREATININE FOR GFR 0.76 MG/DL (0.70-1.30); ETHYL ALCOHOL (ETHANOL) 0.005 % (0.000-0.010); GLOMERULAR FILTRATION RATE > 60.0 (>60); GLUCOSE, FASTING 103 MG/DL (70-100); LIPASE 84 U/L (73-393); POTASSIUM SERUM 3.1 MEQ/L (3.5-5.1); SODIUM LEVEL 139 MEQ/L (136-145); TOTAL PROTEIN 8.7 GM/DL (6.4-8.2)
--- NOTE | 2019-03-29 08:19 | REP ---
Left elbow for views : There is no fracture or dislocation. Mineralization and joint spaces are normal. There are no calcifications or foreign bodies. Impression: Negative left elbow . Electronically Signed by Ernesto Carter MD 03/29/2019 08:09 A
--- NOTE | 2019-03-29 09:12 | REP ---
CT brain: 03/29/2019. Indication: Head trauma. Comparison: 01/20/2009. Technique: Unenhanced axial CT images of the brain were obtained from skull base to vertex. Findings: There is no acute intracranial hemorrhage, acute cortical infarction, significant mass effect or hydrocephalous. No acute calvarial fracture is present. There are areas of extra-axial low attenuation within the right vertex and posterior to the superior vermis most consistent with arachnoid cysts. Impression: No acute intracranial process. Electronically Signed by Jaxon Boggs DO 03/29/2019 09:03 A
[2019-03-29] MEDS ORDERED: POTASSIUM CHLORIDE 10 MEQ SR TABLET PO ONE (09:15)
[2019-03-29 09:22] VITALS: BP 165/90
== END 2019-03-29 09:37 | disposition left against medical advice (07) ==
LOC: M ED 06:33
DX: R10.9 Unspecified abdominal pain (principal); M25.522 Pain in left elbow; S00.83XA Contusion of other part of head, initial encounter; S00.81XA Abrasion of other part of head, initial encounter; V18.9XXA Unspecified pedal cyclist injured in noncollision transport accident in traffic accident, initial encounter; Y92.89 Other specified places as the place of occurrence of the external cause; I10 Essential (primary) hypertension; B19.20 Unspecified viral hepatitis C without hepatic coma; K74.60 Unspecified cirrhosis of liver; F10.10 Alcohol abuse, uncomplicated; F19.10 Other psychoactive substance abuse, uncomplicated; F17.210 Nicotine dependence, cigarettes, uncomplicated
CPT/HCPCS: 36415; 70450; 73080; 80048; 80076; 83690; 85027; 99283; G0480

== ENCOUNTER 2019-08-10 13:10 | Emergency (ER) | payer MEDICAID, OTHER ==
[~2019-08-10] VITALS: Ht 180.3 cm; Wt 94.5 kg
[~2019-08-10 13:10] MED LIST changes: +CLON0.2T PO; +GABA-843 PO; +LASI20TA3 PO; -TRAZ-163 PO; +TRAZ-257 PO
[2019-08-10 13:26] VITALS: BP 143/78
[2019-08-10] MEDS ORDERED: FUROSEMIDE 40 MG TAB PO ONE (13:45)
[2019-08-10 14:18] LABS: EOS # 0.2 10^3/uL (0.0-0.5); EOS % 4.8 % (0.0-3.0); HEMATOCRIT 33.2 % (42.0-52.0); HEMOGLOBIN 11.5 g/dl (13.5-17.5); LYMPH # 0.8 10^3/uL (1.5-5.0); LYMPH % 20.8 % (24.0-44.0); MEAN CORPUSCULAR HEMOGLOBIN 30.9 pg (27.0-33.0); MEAN CORPUSCULAR HGB CONC 34.6 g/dl (32.0-36.5); MEAN CORPUSCULAR VOLUME 89.2 fl (80.0-96.0); MONO # 0.5 10^3/uL (0.0-0.8); MONO % 12.9 % (0.0-5.0); NEUTROPHILS # 2.4 10^3/uL (1.5-8.5); NEUTROPHILS % 60.2 % (36.0-66.0); PLATELET COUNT, AUTOMATED 126 10^3/uL (150-450); RED BLOOD COUNT 3.72 10^6/uL (4.30-6.10)
[2019-08-10 14:54] LABS: ALBUMIN 3.4 GM/DL (3.2-5.2); ALT/SGPT 488 U/L (12-78); BILIRUBIN,DIRECT 0.7 MG/DL (0.0-0.2); BILIRUBIN,TOTAL 3.3 MG/DL (0.2-1.0); BLOOD UREA NITROGEN 19 MG/DL (7-18); CALCIUM LEVEL 8.5 MG/DL (8.5-10.1); CARBON DIOXIDE LEVEL 30 MEQ/L (21-32); CHLORIDE LEVEL 104 MEQ/L (98-107); CK-MB VALUE MASS 4.1 NG/ML (<3.6); CPK CREATINE PHOSPHOKINASE 233 U/L (39-308); GLOMERULAR FILTRATION RATE > 60.0 (>60); GLUCOSE, FASTING 110 MG/DL (70-100); MB/CK RELATIVE INDEX 1.76 (< OR =4); NT-PRO BNP 20 PG/ML (<125); POTASSIUM SERUM 3.3 MEQ/L (3.5-5.1); SODIUM LEVEL 137 MEQ/L (136-145); TOTAL PROTEIN 8.3 GM/DL (6.4-8.2); TROPONIN I < 0.02 NG/ML (< 0.10)
--- NOTE | 2019-08-10 18:44 | ECGEPIP ---
[facility] - ED Test Date: 2019-08-10 Pat Name: HEIDI HAND Department: Room: - Gender: Male Coutierier: SAAD : 1980 Requested By: MIKE GERBER Order Number: [id number] Reading MD: Kay Villa Measurements Intervals [place] Rate: 86 P: 49 OH: 169 QRS: 19 QRSD: 96 T: 55 QT: 402 QTc: 482 Interpretive Statements SINUS RHYTHM MODERATE VOLTAGE CRITERIA FOR LVH, CONSIDER NORMAL VARIANT Electronically Signed on 08-10-2019 18:44:37 EDT by Kay Villa
== END 2019-08-10 14:29 | disposition left against medical advice (07) ==
LOC: EDBD 13:10 → M ED 13:10
DX: R60.0 Localized edema (principal); R06.02 Shortness of breath; B19.20 Unspecified viral hepatitis C without hepatic coma; F10.10 Alcohol abuse, uncomplicated; F17.210 Nicotine dependence, cigarettes, uncomplicated

== ENCOUNTER → 2020-01-14 | Outpatient (CLI) | payer OTHER ==
[~2020-01-14] MED LIST changes: -LACT10SO29 PO; +LACT20EL PO; +OXYC-1 PO; -OXYC15TA76 PO; +PANT40TA29 PO; -PANT40TA3 PO
[2020-01-14 13:30] LABS: HEMATOCRIT 40.8 % (42.0-52.0); HEMOGLOBIN 13.7 g/dl (13.5-17.5); MEAN CORPUSCULAR HEMOGLOBIN 30.6 pg (27.0-33.0); MEAN CORPUSCULAR HGB CONC 33.6 g/dl (32.0-36.5); MEAN CORPUSCULAR VOLUME 91.3 fl (80.0-96.0); PLATELET COUNT, AUTOMATED 169 10^3/uL (150-450); RED BLOOD COUNT 4.47 10^6/uL (4.30-6.10); WHITE BLOOD COUNT 4.5 10^3/uL (4.0-10.0)
[2020-01-14 13:48] LABS: ALBUMIN 3.3 GM/DL (3.2-5.2); ALT/SGPT 110 U/L (12-78); BILIRUBIN,TOTAL 1.6 MG/DL (0.2-1.0); BLOOD UREA NITROGEN 12 MG/DL (7-18); CARBON DIOXIDE LEVEL 31 MEQ/L (21-32); CHLORIDE LEVEL 107 MEQ/L (98-107); CREATININE FOR GFR 0.65 MG/DL (0.70-1.30); GLOMERULAR FILTRATION RATE > 60.0 (>60); GLUCOSE, FASTING 131 MG/DL (70-100); POTASSIUM SERUM 3.9 MEQ/L (3.5-5.1); SODIUM LEVEL 141 MEQ/L (136-145); TOTAL PROTEIN 8.6 GM/DL (6.4-8.2)
[2020-01-14 14:28] LABS: HIV 1&2 SCREEN CENTAUR NEGATIVE (NEGATIVE)
[2020-01-14 14:44] LABS: CHLAMYDIA DNA AMPLIFICATION NEGATIVE (NEGATIVE); GC DNA AMPLIFICATION NEGATIVE (NEGATIVE)
[2020-01-14 16:00] LABS: HEPATITIS C VIRUS ABY INDEX > 11.0 INDEX (<0.8)
[2020-01-16 18:07] LABS: HEPATITIS BE ANTIGEN Negative (Negative)
== END ==
LOC: M PLALAB 09:07
PROVIDERS: ATTEND Family Medicine
DX: F11.90 Opioid use, unspecified, uncomplicated (principal)

== ENCOUNTER → 2020-02-14 | Outpatient (REF) | payer OTHER ==
[2020-02-14 18:27] LABS: ALBUMIN 3.5 GM/DL (3.2-5.2); ALT/SGPT 88 U/L (12-78); BILIRUBIN,TOTAL 1.4 MG/DL (0.2-1.0); BLOOD UREA NITROGEN 15 MG/DL (7-18); CALCIUM LEVEL 8.9 MG/DL (8.5-10.1); CARBON DIOXIDE LEVEL 29 MEQ/L (21-32); CHLORIDE LEVEL 104 MEQ/L (98-107); CREATININE FOR GFR 0.73 MG/DL (0.70-1.30); FREE T4 1.01 NG/DL (0.76-1.46); GLOMERULAR FILTRATION RATE > 60.0 (>60); GLUCOSE, FASTING 71 MG/DL (70-100); POTASSIUM SERUM 3.7 MEQ/L (3.5-5.1); SODIUM LEVEL 139 MEQ/L (136-145)
[2020-02-16 23:07] LABS: HEPATITIS C QUANTITATION 3541750 IU/mL (.)
== END ==
LOC: M LAB REF 16:56
PROVIDERS: ATTEND Family Medicine Addiction Medicine
DX: B19.20 Unspecified viral hepatitis C without hepatic coma (principal); M79.89 Other specified soft tissue disorders

== ENCOUNTER → 2020-12-31 | Outpatient (REF) ==
[~2020-12-31] MED LIST changes: +GABA-282 PO; -GABA-843 PO
--- NOTE | 2020-12-31 11:59 | REP ---
INDICATION: L KNEE INJURY. COMPARISON: None. TECHNIQUE: Routine FINDINGS: Normal alignment. No fracture or dislocation. Narrowing medial compartment of the joint. Small joint effusion. IMPRESSION: Narrowing medial compartment joint space small joint effusion. No fracture. <Electronically signed by Walter Cavanaugh > 12/31/20 [id number]
== END ==
LOC: M PLAIMG 11:08
PROVIDERS: ATTEND Internal Medicine
DX: M25.462 Effusion, left knee (principal); S89.92XA Unspecified injury of left lower leg, initial encounter; X58.XXXA Exposure to other specified factors, initial encounter; Y92.9 Unspecified place or not applicable; Y99.9 Unspecified external cause status

== ENCOUNTER → 2021-01-16 | Outpatient (REF) ==
[2021-01-16 20:10] LABS: INFLUENZA A AMPLIFICATION NEGATIVE (NEGATIVE); INFLUENZA B AMPLIFICATION NEGATIVE (NEGATIVE)
== END ==
LOC: M LAB 01-15 12:51
DX: Z01.89 Encounter for other specified special examinations (principal); Z20.822 Contact with and (suspected) exposure to COVID-19